=== PATIENT | male | born 1980 | race Caucasian/White ===

== ENCOUNTER 2019-03-30 16:27 | Emergency (ER) | payer OTHER ==
[2019-03-30 16:32] VITALS: BP 120/73; PULSE 108; RESP 18; TEMP 98.6
--- NOTE | 2019-03-30 17:08 | ED ---
General Adult HPI - General Chief complaint: Psychiatric Symptoms Stated complaint: Mental health Time Seen by Provider: 03/30/19 16:45 Source: patient, RN notes reviewed Mode of arrival: ambulatory Limitations: no limitations - History of Present Illness Initial comments: Patient is a pleasant 38-year-old male presenting to the emergency Department with depression. Patient from his spouse this morning. Patient was more depressed regarding this. Patient states he did have some sorts of suicidal thoughts. Patient does not feel he could act on it because he is too afraid. No homicidal thoughts. Patient did drink a little bit of Bacardi today and does not normally drink much. No street drug use. No physical complaints. - Related Data Home Medications Medication Instructions Recorded Confirmed No Known Home Medications 03/30/19 03/30/19 Allergies Allergy/AdvReac Type Severity Reaction Status Date / Time amoxicillin Allergy Unknown Verified 03/30/19 16:58 Review of Systems ROS Statement: Those systems with pertinent positive or pertinent negative responses have been documented in the HPI. ROS Other: All systems not noted in ROS Statement are negative. Constitutional: Denies: fever Eyes: Denies: eye pain ENT: Denies: ear pain Respiratory: Denies: cough Cardiovascular: Denies: chest pain Endocrine: Denies: fatigue Gastrointestinal: Denies: abdominal pain Genitourinary: Denies: dysuria Musculoskeletal: Denies: back pain Skin: Denies: rash Psychiatric: Reports: as per HPI, depression. Denies: auditory hallucinations, visual hallucinations, homicidal thoughts Past Medical History Past Medical History: No Reported History History of Any Multi-Drug Resistant Organisms: None Reported Past Surgical History: Tonsillectomy Additional Past Surgical History / Comment(s): fatty tumor removal, Past Psychological History: Anxiety, Depression Smoking Status: Current every day smoker Past Alcohol Use History: Occasional Past Drug Use History: Marijuana General Exam Limitations: no limitations General appearance: alert, in no apparent distress Head exam: Present: normocephalic Eye exam: Present: normal appearance, PERRL ENT exam: Present: normal oropharynx Neck exam: Present: normal inspection Respiratory exam: Present: normal lung sounds bilaterally Cardiovascular Exam: Present: regular rate, normal rhythm GI/Abdominal exam: Present: soft. Absent: tenderness Extremities exam: Present: normal inspection Neurological exam: Present: alert Psychiatric exam: Present: depressed Skin exam: Present: abrasion (Partially healed abrasions left forearm which patient states was from work.) Course Vital Signs 03/30/19 16:29 Temperature 98.6 F Pulse Rate 108 H Respiratory 18 Rate Blood Pressure 120/73 O2 Sat by Pulse 97 Oximetry Medical Decision Making - Medical Decision Making Patient seen by mental health services who recommends discharge and did provide follow-up information. Patient denies suicidal ideation and does contract for safety. - Lab Data Lab Results 03/30/19 Range/Units Unknown Urine Opiates Screen Not Detected (NotDetected) Ur Oxycodone Screen Not Detected (NotDetected) Urine Methadone Screen Not Detected (NotDetected) Ur Propoxyphene Screen Not Detected (NotDetected) Ur Barbiturates Screen Not Detected (NotDetected) U Tricyclic Antidepress Not Detected (NotDetected) Ur Phencyclidine Scrn Not Detected (NotDetected) Ur Amphetamines Screen Not Detected (NotDetected) U Methamphetamines Scrn Not Detected (NotDetected) U Benzodiazepines Scrn Not Detected (NotDetected) Urine Cocaine Screen Not Detected (NotDetected) U Marijuana (THC) Screen Detected H (NotDetected) Disposition Clinical Impression: Depression Disposition: HOME SELF-CARE Condition: Stable Instructions (If sedation given, give patient instructions): Depression (ED) Additional Instructions: Please follow-up with mental health services as directed. Please also follow-up to primary care physician in the next couple days for recheck. Return for thoughts of self-harm, worsening symptoms, or other concerns. Is patient prescribed a controlled substance at d/c from ED?: No Referrals: Abdiel Daugherty MD [STAFF PHYSICIAN] - 1-2 days Time of Disposition: 18:08
[2019-03-30 17:13] LABS: Amphetamine Screen,Urine Not Detected (NotDetected); Barbiturate Screen,Urine Not Detected (NotDetected); Benzodiazepines Screen,Urine Not Detected (NotDetected); Cocaine Screen,Urine Not Detected (NotDetected); Methadone Screen, Urine Not Detected (NotDetected); Opiate Screen,Urine Not Detected (NotDetected); Oxycodone Screen, Urine Not Detected (NotDetected); Phencyclidine Screen,Urine Not Detected (NotDetected); Tricyclic Antidepressant,Urine Not Detected (NotDetected); Urn Cannabinoid Scrn Detected (NotDetected)
== END 2019-03-30 18:38 | disposition home or self-care (01) ==
LOC: EC 16:27
DX: F32.9 Major depressive disorder, single episode, unspecified (principal); F17.200 Nicotine dependence, unspecified, uncomplicated; Z88.0 Allergy status to penicillin; Z63.5 Disruption of family by separation and divorce
CPT/HCPCS: 80306; 82075; 99285

== ENCOUNTER 2023-09-07 17:45 | Emergency (ER) | payer OTHER ==
[2023-09-07 17:57] VITALS: TEMP 98.1
[2023-09-07 18:37] LABS: Basophils # (A) 0.1 k/uL (0-0.2); Basophils % (A) 1 %; Eosinophils # (A) 0.9 k/uL (0-0.7); Eosinophils % (A) 12 %; HCT 43.4 % (39.0-53.0); HGB 14.4 gm/dL (13.0-17.5); Lymphocytes # (A) 2.1 k/uL (1.0-4.8); Lymphocytes % (A) 26 %; MCH 28.8 pg (25.0-35.0); MCHC 33.2 g/dL (31.0-37.0); MCV 86.6 fL (80.0-100.0); Mean Platelet Volume 6.9; Monocytes # (A) 0.5 k/uL (0-1.0); Monocytes % (A) 7 %; Neutrophils # (A) 4.3 k/uL (1.3-7.7); Neutrophils % (A) 53 %; Platelet Count 311 k/uL (150-450); RBC 5.01 m/uL (4.30-5.90); RDW 12.6 % (11.5-15.5); WBC 8.1 k/uL (3.8-10.6)
--- NOTE | 2023-09-07 18:51 | ED ---
Abdominal Pain HPI - General Source: patient, RN notes reviewed Limitations: no limitations <Marlen Danielle - Last Filed: 09/07/23 19:10> <Enmanuel Braswell - Last Filed: 09/11/23 19:58> - General Chief Complaint: Abdominal Pain Stated Complaint: abd pain Time Seen by Provider: 09/07/23 18:00 - History of Present Illness Initial Comments: 42 year old male with no significant past medical history presents to the ER with a chief plaint of left lower quadrant abdominal pain after defecation. Patient states that this has been ongoing over the past few months, but states that the pain now remains for longer periods of time. States that he will have a bowel movement and roughly an hour afterwards she will experience a pain in his left lower quadrant that persists for a few hours that radiates into his groin. Patient denies previous abdominal surgeries or history of hernias. Patient denies hematochezia, dark or tarry stools. Patient denies overt testicular pain or swelling, no hematuria or dysuria. (Marlen Danielle) - Related Data Home Medications Medication Instructions Recorded Confirmed No Known Home Medications 03/30/19 03/30/19 Allergies Allergy/AdvReac Type Severity Reaction Status Date / Time amoxicillin Allergy Unknown Verified 03/30/19 16:58 Review of Systems ROS Other: All systems not noted in ROS Statement are negative. <Marlen Danielle - Last Filed: 09/07/23 19:10> ROS Other: All systems not noted in ROS Statement are negative. <Enmanuel Braswell - Last Filed: 09/11/23 19:58> ROS Statement: Those systems with pertinent positive or pertinent negative responses have been documented in the HPI. Past Medical History Past Medical History: No Reported History History of Any Multi-Drug Resistant Organisms: None Reported Past Surgical History: Tonsillectomy Additional Past Surgical History / Comment(s): fatty tumor removal, Past Psychological History: Anxiety, Depression Past Alcohol Use History: Occasional Past Drug Use History: Marijuana <Marlen Danielle - Last Filed: 09/07/23 19:10> General Exam Limitations: no limitations General appearance: alert, in no apparent distress Head exam: Present: atraumatic, normocephalic, normal inspection Eye exam: Present: normal appearance, PERRL, EOMI. Absent: scleral icterus, conjunctival injection, periorbital swelling ENT exam: Present: normal exam, mucous membranes moist Neck exam: Present: normal inspection. Absent: tenderness, meningismus, lymphadenopathy Respiratory exam: Present: normal lung sounds bilaterally. Absent: respiratory distress, wheezes, rales, rhonchi, stridor Cardiovascular Exam: Present: regular rate, normal rhythm, normal heart sounds. Absent: systolic murmur, diastolic murmur, rubs, gallop, clicks GI/Abdominal exam: Present: soft, tenderness (mild LLQ pain to deep palpation ), normal bowel sounds. Absent: distended, guarding, rebound, rigid, mass Extremities exam: Present: normal inspection, full ROM, normal capillary refill. Absent: tenderness, pedal edema, joint swelling, calf tenderness Back exam: Present: normal inspection Neurological exam: Present: alert, oriented X3, CN II-XII intact Psychiatric exam: Present: normal affect, normal mood Skin exam: Present: warm, dry, intact, normal color. Absent: rash <Marlen Danielle - Last Filed: 09/07/23 19:10> Course Vital Signs 09/07/23 09/07/23 09/07/23 17:46 18:31 19:40 Temperature 98.1 F Pulse Rate 76 61 72 Respiratory 16 18 18 Rate Blood Pressure 112/76 108/71 110/74 O2 Sat by Pulse 98 96 100 Oximetry Medical Decision Making - Lab Data Result diagrams: 09/07/23 18:20 09/07/23 18:20 <Marlen Danielle - Last Filed: 09/07/23 19:10> - Lab Data Result diagrams: 09/07/23 18:20 09/07/23 18:20 <Enmanuel Braswell - Last Filed: 09/11/23 19:58> - Medical Decision Making Was pt. sent in by a medical professional or institution (, PA, DECORATING EQUIPMENT SETTER, urgent care, hospital, or [facility]...) When possible be specific @ -[No] Did you speak to anyone other than the patient for history (EMS, parent, family, police, friend...)? What history was obtained from this source @ -[No] Did you review nursing and triage notes (agree or disagree)? Why? @ -[I reviewed and agree with nursing and triage notes] Were old charts reviewed (outside hosp., previous admission, EMS record, old EKG, old radiological studies, urgent care reports/EKG's, [facility] records)? Report findings @ -[No old charts were reviewed] Differential Diagnosis (chest pain, altered mental status, abdominal pain women, abdominal pain men, vaginal bleeding, weakness, fever, dyspnea, syncope, headache, dizziness, GI bleed, back pain, seizure, CVA, palpatations, mental health, musculoskeletal)? @ -Differential Abdominal Pain Men: Appendicitis, cholecystitis, diverticulosis, ischemic bowel, pancreatitis, hepatitis, UTI, gastroenteritis, AAA, incarcerated hernia, bowel obstruction, constipation, inflammatory bowel, hepatitis, peptic ulcer disease, splenic infarction, perforated viscus, testicular torsion, this is not meant to be an all-inclusive list EKG interpreted by me (3pts min.). @ -None X-rays interpreted by me (1pt min.). @ -[None done] CT interpreted by me (1pt min.). @ -[None done] U/S interpreted by me (1pt. min.). @ -[None done] What testing was considered but not performed or refused? (CT, X-rays, U/S, l abs)? Why? @ -Further imaging, I.e CT and US were considered, but due to the nature of the patient's pain and how long these symptoms have been present for, did not complete imaging of the abdomen. What meds were considered but not given or refused? Why? @ -[None] Did you discuss the management of the patient with other professionals (professionals i.e. , PA, DECORATING EQUIPMENT SETTER, lab, RT, psych nurse, rn social work, molder punch, teacher, science and operations officer, telephonic nurse case manager)? Give summary @ -[No] Was smoking cessation discussed for >3mins.? @ -[No] Was critical care preformed (if so, how long)? @ -[No] Were there social determinants of health that impacted care today? How? (Homelessness, low income, unemployed, alcoholism, drug addiction, transportation, low edu. Level, literacy, decrease access to med. care, detention, rehab)? @ -[No] Was there de-escalation of care discussed even if they declined (Discuss DNR or withdrawal of care, Hospice)? DNR status @ -[No] What co-morbidities impacted this encounter? (DM, HTN, Smoking, COPD, CAD, Cancer, CVA, ARF, Chemo, Hep., AIDS, mental health diagnosis, sleep apnea, morb id obesity)? @ -[None] Was patient admitted / discharged? Hospital course, mention meds given and ro [place], prescriptions, significant lab abnormalities, going to OR and other pertinent info. @ -42-year-old male chief complaint of left lower quadrant pain after defecation. CBC and CMP unremarkable, no elevation in pancreatic enzymes. Undiagnosed new problem with uncertain prognosis? @ -[No] Drug Therapy requiring intensive monitoring for toxicity (Heparin, Nitro, Insulin, Cardizem)? @ -[No] Were any procedures done? @ -[No] Diagnosis/symptom? @ -[default] Acute, or Chronic, or Acute on Chronic? @ -[default] Uncomplicated (without systemic symptoms) or Complicated (systemic symptoms)? @ -[default] Side effects of treatment? @ -[No] Exacerbation, Progression, or Severe Exacerbation? @ -[No] Poses a threat to life or bodily function? How? (Chest pain, [place], [place], pneumonia, PE, COPD, DKA, ARF, appy, cholecystitis, CVA, Diverticulitis, Homicidal, Suicidal, threat to staff... and all critical care pts) @ -[No] (Marlen Danielle) Patient signed out to me from Marlen Danielle PA-C. In short this is a 42-year-old male presenting with chief complaint of abdominal pain after defecation ongoing for the last 2 months. Labs are grossly unremarkable. On reassessment patient shows no acute signs of distress. Abdomen is soft, nontender, nondistended. He is educated on today's findings and instructed to follow-up with GI or surgery for a colonoscopy. Discharged home. Follow-up with PCP. Report back to ER with any new or worsening symptoms. Discussed return parameters and answered all questions. Patient conveyed verbal understanding and agreed to the plan. Case discussed with attending Dr. Grady (Enmanuel Braswell) - Lab Data Lab Results 09/07/23 09/07/23 09/07/23 Range/Units 18:20 18:20 18:20 WBC 8.1 (3.8-10.6) k/uL RBC 5.01 (4.30-5.90) m/uL Hgb 14.4 (13.0-17.5) gm/dL Hct 43.4 (39.0-53.0) % MCV 86.6 (80.0-100.0) fL MCH 28.8 (25.0-35.0) pg MCHC 33.2 (31.0-37.0) g/dL RDW 12.6 (11.5-15.5) % Plt Count 311 (150-450) k/uL MPV 6.9 Neutrophils % 53 % Lymphocytes % 26 % Monocytes % 7 % Eosinophils % 12 % Basophils % 1 % Neutrophils # 4.3 (1.3-7.7) k/uL Lymphocytes # 2.1 (1.0-4.8) k/uL Monocytes # 0.5 (0-1.0) k/uL Eosinophils # 0.9 H (0-0.7) k/uL Basophils # 0.1 (0-0.2) k/uL Sodium 137 (137-145) mmol/L Potassium 4.3 (3.5-5.1) mmol/L Chloride 107 (98-107) mmol/L Carbon Dioxide 22 (22-30) mmol/L Anion Gap 8 mmol/L BUN 14 (9-20) mg/dL Creatinine 0.85 (0.66-1.25) mg/dL Est GFR (CKD-EPI)AfAm >90 (>60 ml/min/1.73 sqM) Est GFR (CKD-EPI)NonAf >90 (>60 ml/min/1.73 sqM) Glucose 87 (74-99) mg/dL Calcium 9.2 (8.4-10.2) mg/dL Total Bilirubin 0.5 (0.2-1.3) mg/dL AST 26 (17-59) U/L ALT 21 (4-49) U/L Alkaline Phosphatase 70 (38-126) U/L Total Protein 7.3 (6.3-8.2) g/dL Albumin 4.1 (3.5-5.0) g/dL Amylase 85 (30-110) U/L Lipase 237 (23-300) U/L Urine Color Light Yellow Urine Appearance Clear (Clear) Urine pH 6.5 (5.0-8.0) Ur Specific [place] 1.027 (1.001-1.035) Urine Protein Trace H (Negative) Urine Glucose (UA) Negative (Negative) Urine Ketones Negative (Negative) Urine Blood Negative (Negative) Urine Nitrite Negative (Negative) Urine Bilirubin Negative (Negative) Urine Urobilinogen <2.0 (<2.0) mg/dL Ur Leukocyte Esterase Negative (Negative) Disposition <Marlen aDnielle - Last Filed: 09/07/23 19:10> Is patient prescribed a controlled substance at d/c from ED?: No Time of Disposition: 19:26 <Enmanuel Braswell - Last Filed: 09/11/23 19:58> Clinical Impression: Abdominal pain Disposition: HOME SELF-CARE Condition: Fair Instructions (If sedation given, give patient instructions): Abdominal Pain (ED) Additional Instructions: Follow-up with PCP and GI or surgery for colonoscopy, a few options are pr ovided. Report back to ER with any new or worsening symptoms. Referrals: Michael Torres MD [Primary Care Provider] - 1-2 days Jose Roberto Brandt MD [STAFF PHYSICIAN] - 1-2 days Debbie Leach MD [STAFF PHYSICIAN] - 1-2 days Rowan Nina MD [STAFF PHYSICIAN] - 1-2 days
[2023-09-07 19:01] VITALS: RESP 18
[2023-09-07 19:02] LABS: ALT 21 U/L (4-49); AST 26 U/L (17-59); African American GFR (CKD) >90 (>60 ml/min/1.73 sqM); Albumin 4.1 g/dL (3.5-5.0); Alkaline Phosphatase 70 U/L (38-126); Amylase 85 U/L (30-110); Anion Gap 8 mmol/L; Blood Urea Nitrogen 14 mg/dL (9-20); Calcium 9.2 mg/dL (8.4-10.2); Carbon Dioxide 22 mmol/L (22-30); Chloride 107 mmol/L (98-107); Glucose 87 mg/dL (74-99); Lipase 237 U/L (23-300); Non-African American GFR(CKD) >90 (>60 ml/min/1.73 sqM); Potassium 4.3 mmol/L (3.5-5.1); Sodium 137 mmol/L (137-145); Total Bilirubin 0.5 mg/dL (0.2-1.3); Total Protein 7.3 g/dL (6.3-8.2)
[2023-09-07 19:17] LABS: Appearance,Urine Clear (Clear); Bilirubin,Urine Negative (Negative); Blood,Urine Negative (Negative); Color,Urine Light Yellow; Glucose,Urine (UA) Negative (Negative); Ketones,Urine Negative (Negative); Leukocyte Esterase,Urine Negative (Negative); Nitrite,Urine Negative (Negative); PH, Urine 6.5 (5.0-8.0); Protein,Urine Trace (Negative); Specific Gravity,Urine 1.027 (1.001-1.035); Urobilinogen,Urine <2.0 mg/dL (<2.0)
[2023-09-07 20:04] VITALS: BP 110/74; PULSE 72
== END 2023-09-07 19:50 | disposition home or self-care (01) ==
LOC: EC 17:45
DX: R10.32 Left lower quadrant pain (principal); F12.90 Cannabis use, unspecified, uncomplicated; Z88.0 Allergy status to penicillin
CPT/HCPCS: 36415; 80053; 81003; 82150; 83690; 85025; 99284

== ENCOUNTER 2024-08-31 10:22 | Inpatient (IN) | payer OTHER ==
--- NOTE | 2024-08-31 11:41 | ED ---
Abdominal Pain HPI - General Chief Complaint: Abdominal Pain Stated Complaint: abd pain Time Seen by Provider: 08/31/24 11:40 Source: patient Mode of arrival: ambulatory Limitations: no limitations - History of Present Illness Initial Comments: 43-year-old male presenting chief complaint of abdominal pain. Patient states "he feels like there is a ball involving middle of my stomach". He did have some vomiting and diarrhea a few days ago which has since subsided. No history of abdominal surgeries. No chest pain or difficulty breathing. No urinary symptoms. No known fever. Pain does radiate to the back. Feels like a pressure sensation accompanied by burning. - Related Data Home Medications Medication Instructions Recorded Confirmed FLUoxetine HCL 40 mg PO DAILY 08/31/24 08/31/24 Allergies Allergy/AdvReac Type Severity Reaction Status Date / Time amoxicillin Allergy Unknown Verified 08/31/24 14:25 Review of Systems ROS Statement: Those systems with pertinent positive or pertinent negative responses have been documented in the HPI. ROS Other: All systems not noted in ROS Statement are negative. Past Medical History Past Medical History: No Reported History, GERD/Reflux History of Any Multi-Drug Resistant Organisms: None Reported Past Surgical History: Tonsillectomy Additional Past Surgical History / Comment(s): fatty tumor removal, Past Psychological History: Anxiety, Depression Past Alcohol Use History: Occasional Past Drug Use History: Marijuana General Exam - General Exam Comments Initial Comments: Visual Physical Exam Vital signs reviewed General: Well-appearing, nontoxic, no acute distress. Head: Normocephalic, atraumatic Eyes: PERRLA, EOMI ENT: Airway patent Chest: Nonlabored breathing Skin: No visual rash, normal skin tone Neuro: Alert and oriented 3 Musculoskeletal: No gross abnormalities Limitations: no limitations General appearance: alert, in no apparent distress Head exam: Present: atraumatic, normocephalic, normal inspection Eye exam: Present: normal appearance, EOMI Neck exam: Present: normal inspection. Absent: meningismus Respiratory exam: Present: normal lung sounds bilaterally. Absent: respiratory distress, wheezes, rales, rhonchi, stridor Cardiovascular Exam: Present: regular rate, normal rhythm, normal heart sounds. Absent: systolic murmur, diastolic murmur, rubs, gallop, clicks GI/Abdominal exam: Present: soft, tenderness. Absent: distended, guarding, rebound, rigid Neurological exam: Present: alert, oriented X3 Psychiatric exam: Present: normal affect, normal mood Skin exam: Present: warm, dry, normal color Course Vital Signs 08/31/24 08/31/24 08/31/24 10:39 13:50 18:36 Temperature 97.9 F 97.7 F Pulse Rate 72 56 L 69 Respiratory 20 20 20 Rate Blood Pressure 131/80 129/78 119/77 O2 Sat by Pulse 99 100 99 Oximetry 08/31/24 21:31 Temperature 99 F Pulse Rate 72 Respiratory 18 Rate Blood Pressure 121/67 O2 Sat by Pulse 99 Oximetry Medical Decision Making - Medical Decision Making I performed the quick note portion of this visit, electronically signed Enmanuel Braswell PA-C Was pt. sent in by a medical professional or institution ([facility], SLEEPING ROOM CLEANER, urgent care, hospital, or group home...) When possible be specific @ -No Did you speak to anyone other than the patient for history (EMS, parent, family, police, friend...)? What history was obtained from this source @ -No Did you review nursing and triage notes (agree or disagree)? Why? @ -I reviewed and agree with nursing and triage notes Were old charts reviewed (outside hosp., previous admission, EMS record, old EKG, old radiological studies, urgent care reports/EKG's, group home records)? Report findings @ -No old charts were reviewed Differential Diagnosis (chest pain, altered mental status, abdominal pain women, abdominal pain men, vaginal bleeding, weakness, fever, dyspnea, syncope, headache, dizziness, GI bleed, back pain, seizure, CVA, palpatations, mental health, musculoskeletal)? @ -MDM Differential Abdominal Pain Men: Appendicitis, cholecystitis, diverticulosis, ischemic bowel, pancreatitis, hepatitis, UTI, gastroenteritis, AAA, incarcerated hernia, bowel obstruction, constipation, inflammatory bowel, hepatitis, peptic ulcer disease, splenic infarction, perforated viscus, testicular torsion... This is not meant to be an all-inclusive list EKG interpreted by me (3pts min.). @ -As above X-rays interpreted by me (1pt min.). @ -None done CT interpreted by me (1pt min.). @ -CT shows findings concerning for acute cholecystitis with mildly distended gallbladder with wall thickening and pericholecystic fluid with stranding and a large gallstone in the gallbladder neck. Correlate clinically. This can be further evaluated with ultrasound as clinically indicated U/S interpreted by me (1pt. min.). @ -None done What testing was considered but not performed or refused? (CT, X-rays, U/S, labs)? Why? @ -None What meds were considered but not given or refused? Why? @ -None Did you discuss the management of the patient with other professionals (professionals i.e. DrNichole, PA, SLEEPING ROOM CLEANER, lab, RT, psych nurse, social media coordinator, runner on, teacher, payroll officer, bottle caser)? Give summary @ -Spoke with Dr. Jay who accepts admission Was smoking cessation discussed for >3mins.? @ -No Was critical care preformed (if so, how long)? @ -No Were there social determinants of health that impacted care today? How? (Homelessness, low income, unemployed, alcoholism, drug addiction, transportation, low edu. Level, literacy, decrease access to med. care, retirement, rehab)? @ -No Was there de-escalation of care discussed even if they declined (Discuss DNR or withdrawal of care, Hospice)? DNR status @ -No What co-morbidities impacted this encounter? (DM, HTN, Smoking, COPD, CAD, Cancer, CVA, ARF, Chemo, Hep., AIDS, mental health diagnosis, sleep apnea, morbid obesity)? @ -None Was patient admitted / discharged? Hospital course, mention meds given and route, prescriptions, significant lab abnormalities, going to OR and other pertinent info. @ -43-year-old male presenting with chief complaint of epigastric pain for 4 days. Workup is initiated by triage. Patient is later placed in a hallway bed and evaluated by myself. No leukocytosis or anemia. Sodium 135 patient is receiving IV fluids. Remainder of CMP amylase and lipase are WNL. Urine shows no infectious process or bleeding. CT shows evidence of acute cholecystitis. This corresponds with the patient's pain. Patient is started on ceftriaxone and metronidazole. He is educated on today's findings. He will be admitted for evaluation by surgery. Follow-up with PCP. Report back to ER with any new or worsening symptoms. Discussed return parameters and answered all questions. Patient conveyed verbal understanding and agreed to the plan. I discussed this case in detail with my attending Dr. Howard Undiagnosed new problem with uncertain prognosis? @ -No Drug Therapy requiring intensive monitoring for toxicity (Heparin, Nitro, Insulin, Cardizem)? @ -No Were any procedures done? @ -No Diagnosis/symptom? @ -Acute cholecystitis Acute, or Chronic, or Acute on Chronic? @ -Acute Uncomplicated (without systemic symptoms) or Complicated (systemic symptoms)? @ -Complicated Side effects of treatment? @ -No Exacerbation, Progression, or Severe Exacerbation? @ -No Poses a threat to life or bodily function? How? (Chest pain, [place], [place], pneumonia, PE, COPD, DKA, ARF, appy, cholecystitis, CVA, Diverticulitis, Homicidal, Suicidal, threat to staff... and all critical care pts) @ -Yes - Lab Data Result diagrams: 08/31/24 13:13 08/31/24 13:13 Lab Results 08/31/24 08/31/24 08/31/24 Range/Units 13:13 13:13 13:13 WBC 9.9 (3.8-10.6) k/uL RBC 4.95 (4.30-5.90) m/uL Hgb 13.5 (13.0-17.5) gm/dL Hct 41.7 (39.0-53.0) % MCV 84.2 (80.0-100.0) fL MCH 27.2 (25.0-35.0) pg MCHC 32.3 (31.0-37.0) g/dL RDW 12.8 (11.5-15.5) % Plt Count 348 (150-450) k/uL MPV 7.2 Neutrophils % 64 % Lymphocytes % 23 % Monocytes % 7 % Eosinophils % 4 % Basophils % 0 % Neutrophils # 6.3 (1.3-7.7) k/uL Lymphocytes # 2.3 (1.0-4.8) k/uL Monocytes # 0.7 (0-1.0) k/uL Eosinophils # 0.4 (0-0.7) k/uL Basophils # 0.0 (0-0.2) k/uL Sodium 135 L (137-145) mmol/L Potassium 3.8 (3.5-5.1) mmol/L Chloride 100 (98-107) mmol/L Carbon Dioxide 26 (22-30) mmol/L Anion Gap 9 mmol/L BUN 9 (9-20) mg/dL Creatinine 0.74 (0.66-1.25) mg/dL Est GFR (CKD-EPI)AfAm >90 (>60 ml/min/1.73 sqM) Est GFR (CKD-EPI)NonAf >90 (>60 ml/min/1.73 sqM) Glucose 90 (74-99) mg/dL Plasma Lactic Acid Shawn 0.8 (0.7-2.0) mmol/L Calcium 9.1 (8.4-10.2) mg/dL Total Bilirubin 0.8 (0.2-1.3) mg/dL AST 22 (17-59) U/L ALT 17 (4-49) U/L Alkaline Phosphatase 66 (38-126) U/L Total Protein 7.1 (6.3-8.2) g/dL Albumin 4.0 (3.5-5.0) g/dL Amylase 57 (30-110) U/L Lipase 133 (23-300) U/L Disposition Clinical Impression: Acute cholecystitis Disposition: ADMITTED IP TO THIS HOSP Condition: Fair Time of Disposition: 13:42
--- NOTE | 2024-08-31 12:15 | CT ---
EXAMINATION TYPE: CT abdomen pelvis w con CT DLP: 746 mGycm, Automated exposure control for dose reduction was used. DATE OF EXAM: 08/31/2024 12:08 PM COMPARISON: None CLINICAL INDICATION:Male, 43 years old with history of abdominal pain; Umbilical pain radiating aroun d the back TECHNIQUE: Standard CT of the abdomen and pelvis following the administration of 100 cc of Isovue 3 00 IV contrast material. Coronal and sagittal reformats were performed. FINDINGS: LOWER CHEST: Unremarkable ABDOMEN LIVER: Subcentimeter hypodense focus within the right hepatic dome which is too small to categorize b ut likely represents a cyst. GALLBLADDER AND BILE DUCTS: Mildly distended gallbladder with surrounding wall thickening and pericho lecystic fluid. Large 2.4 cm gallstone in the neck of the gallbladder. No biliary duct dilatation. PANCREAS: Unremarkable. SPLEEN: Unremarkable. ADRENAL GLANDS: Unremarkable. KIDNEYS AND URETERS: No evidence of hydronephrosis or renal calculus. The kidneys enhance symmetrical ly. Left renal upper pole cortical 1.2 cm cyst. Additional subcentimeter cyst within the left mid kid lisa. Contrast is demonstrated within both collecting systems on the delayed phase. PELVIS BLADDER: Incompletely distended but grossly unremarkable. REPRODUCTIVE: Unremarkable. ABDOMEN & PELVIS STOMACH AND BOWEL: Stomach and duodenum are unremarkable. No focal bowel wall thickening or surroundi ng inflammatory changes. The appendix is within normal limits. No evidence of bowel obstruction. PERITONEUM: No evidence of pneumoperitoneum or free fluid. VASCULATURE: No evidence of aortic aneurysm. Few pelvic phleboliths. MUSCULOSKELETAL: No acute osseous abnormalities LYMPH NODES: No evidence for lymphadenopathy. SOFT TISSUE/ABDOMINAL WALL: Unremarkable IMPRESSION: Findings concerning for acute cholecystitis with mildly distended gallbladder with wall thickening an d pericholecystic fluid with stranding and a large gallstone in the gallbladder neck. Correlate clini flory. This can be further evaluated with ultrasound as clinically indicated. [facility], , 08/31/2024 12:13 PM
[2024-08-31] MEDS: SODIUM CHLORIDE 0.9% 1,000 ML IV ONE (13:16)
[2024-08-31] MEDS: MORPHINE SULFATE 4 MG/ML SYRINGE IVP STA (13:16)
[2024-08-31 13:18] LABS: Basophils % (A) 0 %; Eosinophils # (A) 0.4 k/uL (0-0.7); Eosinophils % (A) 4 %; HCT 41.7 % (39.0-53.0); HGB 13.5 gm/dL (13.0-17.5); Lymphocytes # (A) 2.3 k/uL (1.0-4.8); Lymphocytes % (A) 23 %; MCH 27.2 pg (25.0-35.0); MCHC 32.3 g/dL (31.0-37.0); MCV 84.2 fL (80.0-100.0); Mean Platelet Volume 7.2; Monocytes # (A) 0.7 k/uL (0-1.0); Monocytes % (A) 7 %; Neutrophils # (A) 6.3 k/uL (1.3-7.7); Neutrophils % (A) 64 %; Platelet Count 348 k/uL (150-450); RBC 4.95 m/uL (4.30-5.90); RDW 12.8 % (11.5-15.5); WBC 9.9 k/uL (3.8-10.6)
[2024-08-31 13:29] LABS: ALT 17 U/L (4-49); AST 22 U/L (17-59); African American GFR (CKD) >90 (>60 ml/min/1.73 sqM); Alkaline Phosphatase 66 U/L (38-126); Amylase 57 U/L (30-110); Anion Gap 9 mmol/L; Blood Urea Nitrogen 9 mg/dL (9-20); Calcium 9.1 mg/dL (8.4-10.2); Carbon Dioxide 26 mmol/L (22-30); Chloride 100 mmol/L (98-107); Glucose 90 mg/dL (74-99); Lipase 133 U/L (23-300); Non-African American GFR(CKD) >90 (>60 ml/min/1.73 sqM); Potassium 3.8 mmol/L (3.5-5.1); Sodium 135 mmol/L (137-145); Total Bilirubin 0.8 mg/dL (0.2-1.3); Total Protein 7.1 g/dL (6.3-8.2)
[2024-08-31] MEDS ORDERED: NALOXONE 0.4 MG/ML 1 ML VIAL IV PRN (13:40)
[2024-08-31 14:04] LABS: Appearance,Urine Clear (Clear); Bilirubin,Urine Negative (Negative); Blood,Urine Negative (Negative); Color,Urine Colorless; Glucose,Urine (UA) Negative (Negative); Ketones,Urine 1+ (Negative); Leukocyte Esterase,Urine Negative (Negative); Nitrite,Urine Negative (Negative); Protein,Urine Negative (Negative); Urobilinogen,Urine <2.0 mg/dL (<2.0)
[2024-08-31] MEDS: SODIUM CHLORIDE 0.9% 1,000 ML IV SCH (14:49)
--- NOTE | 2024-08-31 14:49 | US ---
EXAMINATION TYPE: US abdomen limited DATE OF EXAM: 08/31/2024 COMPARISON: NONE CLINICAL INDICATION: Male, 43 years old with history of Acute Cholecystitis; cholecystitis. epigastri c pain, nausea/vomiting TECHNIQUE: Grayscale and color Doppler imaging of the right upper quadrant was performed. FINDINGS: EXAM MEASUREMENTS: Liver Length: 14.8 cm Gallbladder Wall: 0.5 cm CBD: 0.4 cm Right Kidney: 12.1 x 5.1 x 4.9 cm Pancreas: Obscured by bowel gas Liver: appears wnl Gallbladder: stone = 1.8cm. sludge. thickened GB wall Evidence for sonographic Piña's sign: no, patient on morphine CBD: appears wnl Right Kidney: no evidence of hydronephrosis IMPRESSION: Gallbladder wall thickening with sludge material noted. No pericholecystic fluid or CBD dilatation. [facility], , 08/31/2024 2:47 PM
[2024-08-31] MEDS: metroNIDAZOLE-NS PMX 500 MG in SALINE 1 100ML.BAG IVPB STA (14:51)
[2024-08-31] MEDS: metroNIDAZOLE-NS PMX 500 MG in SALINE 1 100ML.BAG IVPB SCH (15:23)
[2024-08-31] MEDS: MORPHINE SULFATE 4 MG/ML SYRINGE IV PRN (18:38)
[2024-08-31] MEDS: KETOROLAC 15 MG/ML 1 ML VIAL IVP PRN (20:24)
[2024-08-31] MEDS: ONDANSETRON 4 MG/2 ML VIAL IVP PRN (23:29)
[2024-09-01] MEDS: FLUoxetine HCL 20 MG CAP PO SCH (07:48)
[2024-09-01 07:54] LABS: Basophils % (A) 0 %; Eosinophils # (A) 0.3 k/uL (0-0.7); Eosinophils % (A) 5 %; HCT 37.4 % (39.0-53.0); HGB 12.6 gm/dL (13.0-17.5); Lymphocytes # (A) 2.1 k/uL (1.0-4.8); Lymphocytes % (A) 29 %; MCHC 33.8 g/dL (31.0-37.0); MCV 85.8 fL (80.0-100.0); Mean Platelet Volume 7.3; Monocytes # (A) 0.6 k/uL (0-1.0); Monocytes % (A) 8 %; Neutrophils # (A) 4.2 k/uL (1.3-7.7); Neutrophils % (A) 56 %; Platelet Count 295 k/uL (150-450); RBC 4.36 m/uL (4.30-5.90); RDW 13.1 % (11.5-15.5); WBC 7.4 k/uL (3.8-10.6)
[2024-09-01 08:07] LABS: ALT 14 U/L (4-49); AST 20 U/L (17-59); African American GFR (CKD) >90 (>60 ml/min/1.73 sqM); Albumin 3.5 g/dL (3.5-5.0); Albumin/Globulin Ratio 1.3; Alkaline Phosphatase 57 U/L (38-126); Anion Gap 6 mmol/L; Bilirubin,Unconjugated 0.4 mg/dL (0.0-1.1); Blood Urea Nitrogen 2 mg/dL (9-20); Calcium 8.5 mg/dL (8.4-10.2); Carbon Dioxide 26 mmol/L (22-30); Chloride 104 mmol/L (98-107); Globulin 2.7 g/dL; Glucose 87 mg/dL (74-99); Non-African American GFR(CKD) >90 (>60 ml/min/1.73 sqM); Sodium 136 mmol/L (137-145); Total Bilirubin 0.6 mg/dL (0.2-1.3); Total Protein 6.2 g/dL (6.3-8.2)
--- NOTE | 2024-09-01 09:18 | P.GSHP ---
History of Present Illness H&P Date: 09/01/24 43-year-old male presenting chief complaint of abdominal pain. Patient states "he feels like there is a ball involving middle of my stomach". He did have some vomiting and diarrhea a few days ago which has since subsided. No history of abdominal surgeries. No chest pain or difficulty breathing. No urinary symptoms. No known fever. Pain does radiate to the back. Feels like a pressu re sensation accompanied by burning. Review of Systems ROS Statement: Those systems with pertinent positive or pertinent negative responses have been documented in the HPI. ROS Other: All systems not noted in ROS Statement are negative. Past Medical History Past Medical History: No Reported History, GERD/Reflux History of Any Multi-Drug Resistant Organisms: None Reported Past Surgical History: Tonsillectomy Additional Past Surgical History / Comment(s): fatty tumor removal, Past Psychological History: Anxiety, Depression Past Alcohol Use History: Occasional Past Drug Use History: Marijuana General Exam Limitations: no limitations General appearance: alert, in no apparent distress Head exam: Present: atraumatic, normocephalic, normal inspection Eye exam: Present: normal appearance, EOMI Neck exam: Present: normal inspection. Absent: meningismus Respiratory exam: Present: normal lung sounds bilaterally. Absent: respiratory distress, wheezes, rales, rhonchi, stridor Cardiovascular Exam: Present: regular rate, normal rhythm, normal heart sounds. Absent: systolic murmur, diastolic murmur, rubs, gallop, clicks GI/Abdominal exam: Present: soft, tenderness. Absent: distended, guarding, rebound, rigid Neurological exam: Present: alert, oriented X3 Psychiatric exam: Present: normal affect, normal mood Skin exam: Present: warm, dry, normal color 43 year old male with epigastric pain. CT-AP concerning for cholecystitis. US shows some GB wall thickening with sludge but no PCC fluid or stones -CT-AP and US reviewed -CLD, NPO/midnight -EGD tomorrow to rule out PUD -HIDA scan ordered -Rocephin/Flagyl -Pain and Nausea Control Mauro [facility] [phone] Past Medical History Past Medical History: GERD/Reflux History of Any Multi-Drug Resistant Organisms: None Reported Past Surgical History: Tonsillectomy Additional Past Surgical History / Comment(s): fatty tumor removal Past Anesthesia/Blood Transfusion Reactions: No Reported Reaction Past Psychological History: Anxiety, Depression Smoking Status: Former smoker Past Alcohol Use History: Occasional Past Drug Use History: Marijuana Medications and Allergies Home Medications Medication Instructions Recorded Confirmed Type FLUoxetine HCL 40 mg PO DAILY 08/31/24 08/31/24 History Allergies Allergy/AdvReac Type Severity Reaction Status Date / Time amoxicillin Allergy Unknown Verified 08/31/24 14:25 Surgical - Exam Vital Signs Temp Pulse Resp BP Pulse Ox 97.9 F 72 20 131/80 99 08/31/24 10:39 08/31/24 10:39 08/31/24 10:39 08/31/24 10:39 08/31/24 10:39 Results - Labs 09/01/24 07:05 09/01/24 07:05 Abnormal Lab Results - Last 24 Hours (Table) 08/31/24 08/31/24 09/01/24 Range/Units 13:13 13:58 07:05 Hgb 12.6 L (13.0-17.5) gm/dL Hct 37.4 L (39.0-53.0) % Sodium 135 L (137-145) mmol/L BUN (9-20) mg/dL Total Protein (6.3-8.2) g/dL Ur Specific [place] 1.050 H (1.001-1.035) Urine Ketones 1+ H (Negative) 09/01/24 Range/Units 07:05 Hgb (13.0-17.5) gm/dL Hct (39.0-53.0) % Sodium 136 L (137-145) mmol/L BUN 2 L (9-20) mg/dL Total Protein 6.2 L (6.3-8.2) g/dL Ur Specific [place] (1.001-1.035) Urine Ketones (Negative) Diabetes panel 08/31/24 09/01/24 Range/Units 13:13 07:05 Sodium 135 L 136 L (137-145) mmol/L Potassium 3.8 4.0 (3.5-5.1) mmol/L Chloride 100 104 (98-107) mmol/L Carbon Dioxide 26 26 (22-30) mmol/L BUN 9 2 L (9-20) mg/dL Creatinine 0.74 0.67 (0.66-1.25) mg/dL Glucose 90 87 (74-99) mg/dL Calcium 9.1 8.5 (8.4-10.2) mg/dL AST 22 20 (17-59) U/L ALT 17 14 (4-49) U/L Alkaline Phosphatase 66 57 (38-126) U/L Total Protein 7.1 6.2 L (6.3-8.2) g/dL Albumin 4.0 3.5 (3.5-5.0) g/dL Calcium panel 08/31/24 09/01/24 Range/Units 13:13 07:05 Calcium 9.1 8.5 (8.4-10.2) mg/dL Albumin 4.0 3.5 (3.5-5.0) g/dL Pituitary panel 08/31/24 09/01/24 Range/Units 13:13 07:05 Sodium 135 L 136 L (137-145) mmol/L Potassium 3.8 4.0 (3.5-5.1) mmol/L Chloride 100 104 (98-107) mmol/L Carbon Dioxide 26 26 (22-30) mmol/L BUN 9 2 L (9-20) mg/dL Creatinine 0.74 0.67 (0.66-1.25) mg/dL Glucose 90 87 (74-99) mg/dL Calcium 9.1 8.5 (8.4-10.2) mg/dL Adrenal panel 08/31/24 09/01/24 Range/Units 13:13 07:05 Sodium 135 L 136 L (137-145) mmol/L Potassium 3.8 4.0 (3.5-5.1) mmol/L Chloride 100 104 (98-107) mmol/L Carbon Dioxide 26 26 (22-30) mmol/L BUN 9 2 L (9-20) mg/dL Creatinine 0.74 0.67 (0.66-1.25) mg/dL Glucose 90 87 (74-99) mg/dL Calcium 9.1 8.5 (8.4-10.2) mg/dL Total Bilirubin 0.8 0.6 (0.2-1.3) mg/dL AST 22 20 (17-59) U/L ALT 17 14 (4-49) U/L Alkaline Phosphatase 66 57 (38-126) U/L Total Protein 7.1 6.2 L (6.3-8.2) g/dL Albumin 4.0 3.5 (3.5-5.0) g/dL
--- NOTE | 2024-09-01 20:47 | HP ---
HISTORY AND PHYSICAL CHIEF COMPLAINT: Abdominal pain. HISTORY OF PRESENT ILLNESS: This 43-year-old gentleman came to the emergency room with epigastric pain and a feeling of bloating. Studies in the emergency room suggested that he has a thickened wall to the gallbladder. Pancreatic enzymes are normal. He was admitted with a diagnosis of cholecystitis. REVIEW OF SYSTEMS: He has had no fever, chills, hematemesis, jaundice, acholic stools, dark urine, etc. PAST MEDICAL HISTORY: Otherwise, unremarkable and noncontributory. FAMILY HISTORY: Otherwise, unremarkable and noncontributory. PERSONAL AND SOCIAL HISTORY: Otherwise, unremarkable and noncontributory. PHYSICAL EXAMINATION: VITAL SIGNS: Normal. He is afebrile. HEAD, EARS, EYES, NOSE, MOUTH AND THROAT: Normal. CHEST: Clear. CARDIAC EXAM: Normal. ABDOMEN: Soft and nontender except over the epigastrium. There are no definite masses or visceromegaly. Bowel sounds are present. EXTREMITIES: Normal. NEUROLOGIC: He is intact. DIAGNOSES: He is admitted to the hospital with diagnosis of cholecystitis. PLAN: 1. Bed rest. 2. IV fluids. 3. General Surgery consult. MMODL / IJN: [id number] /
--- NOTE | 2024-09-01 21:53 | PN ---
PROGRESS NOTE CHIEF COMPLAINT: Abdominal pain. HISTORY OF PRESENT ILLNESS: This gentleman is still having quite a bit of abdominal pain intermittently. Apparently, Surgery thinks this might be an ulcer. 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 CHEST: Clear. CARDIAC: Normal. IMPRESSION: Epigastric pain. PLAN: Await further studies tomorrow. MMODL / IJN: [id number] /
[2024-09-02 09:18] LABS: Basophils # (A) 0.04 X 10*3/uL (0.00-0.10); Basophils % (A) 0.6 %; Eosinophils # (A) 0.35 X 10*3/uL (0.04-0.35); Eosinophils % (A) 5.2 %; HCT 35.7 % (39.6-50.0); HGB 11.9 g/dL (13.0-17.0); Lymphocytes # (A) 2.12 X 10*3/uL (0.90-5.00); Lymphocytes % (A) 31.5 %; MCH 28.2 pg (27.0-32.0); MCHC 33.3 g/dL (32.0-37.0); MCV 84.6 FL (80.0-97.0); Monocytes # (A) 0.68 X 10*3/uL (0.20-1.00); Monocytes % (A) 10.1 %; NRBC Per 100 WBC 0 X 10*3/uL (0.00-0.01); Neutrophils # (A) 3.51 X 10*3/uL (1.80-7.70); Neutrophils % (A) 52.2 %; Platelet Count 313 X 10*3/uL (140-440); RBC 4.22 X 10*6/uL (4.40-5.60); RDW 12.9 % (11.5-14.5); WBC 6.73 X 10*3/uL (4.50-10.00)
[2024-09-02 09:23] LABS: BUN/Creat Ratio <5.00 Ratio (12.00-20.00); Blood Urea Nitrogen <3.5 mg/dL (9.0-27.0); Carbon Dioxide 24.1 mmol/L (21.6-31.8); Chloride 110 mmol/L (96-109); Glucose 90 mg/dL (70-110); Potassium 3.9 mmol/L (3.5-5.5); Sodium 141 mmol/L (135-145)
[2024-09-02 09:24] LABS: ALT 12 U/L (10-49); AST 16 U/L (14-35); Albumin 3.5 g/dL (3.8-4.9); Albumin/Globulin Ratio 1.59 Ratio (1.60-3.17); Alkaline Phosphatase 60 U/L (41-126); Bilirubin, Conjugated <0.20 mg/dL (0.20-0.40); Bilirubin,Unconjugated >0.10 mg/dL (0.20-1.00); Calcium 8.4 mg/dL (8.7-10.3); Globulin 2.2 g/dL (1.6-3.3); Total Bilirubin 0.3 mg/dL (0.3-1.2); Total Protein 5.7 g/dL (6.2-8.2)
[2024-09-02] MEDS ORDERED: PROPOFOL 10 MG/ML 20 ML VIAL IV ONE (10:38)
[2024-09-02] MEDS ORDERED: LIDOCAINE 1% INJ 10MG/ML (20 ML MDV) ONE (10:38)
[2024-09-02] MEDS: IV FLUID CONTINUATION 1,000 ML IV ONE (10:48)
--- NOTE | 2024-09-02 11:03 | P.PCN ---
Date of Procedure: 09/02/24 Preoperative Diagnosis: Epigastric pain Postoperative Diagnosis: Epigastric pain Duodenitis Hiatal hernia Procedure(s) Performed: EGD with biopsies Anesthesia: MAC Surgeon: Julito Varghese Pathology: other (Biopsies of duodenum, antrum, GE junction) Condition: stable Disposition: same day Indications for Procedure: 43-year-old male presented to the emergency department with severe epigastric pain. Workup constitutes both biliary and gastric workup. Plan is for EGD currently. Risks, benefits and alternatives were provided to the patient. Operative Findings: Duodenitis Hiatal hernia Description of Procedure: The patient was brought into the endoscopy suite and placed in left lateral decubitus position. Adequate sedation was achieved using conscious sedation. A bite-block was placed and an endoscope was placed in the oropharynx and advanced under endoscopic visualization. The endoscope was advanced through the esophagus into the stomach, through the gastric antrum and in through the pylorus. The third portion of duodenum was visualized. The endoscope was then slowly withdrawn. The first portion of duodenum was noted to have some white patches and inflammatory changes. Biopsies were taken. The antrum was noted to have mild inflammatory changes. Biopsies were taken. The gastric body distended normally and the gastric folds appeared normal and flattened with insufflation. A retroflexed view of the fundus and GE junction revealed mild hiatal hernia. GE junction appeared normal and biopsies were taken. The esophagus appeared endoscopically normal. Excess air was removed and the scope was withdrawn and the procedure was completed. The patient was sent to PACU in stable condition.
--- NOTE | 2024-09-02 12:28 | NM ---
EXAMINATION TYPE: NM hepatobiliary w/o CCK DATE OF EXAM: 09/02/2024 12:15 PM COMPARISON: CT 08/03/2024 CLINICAL INDICATION:Male, 43 years old with history of Cholecystitis; TECHNIQUE: The patient was given 5.2 mCi of Technetium 99m-Mebrofenin delayed imaging is performed u p to 4 hours with nonvisualization the gallbladder. Exam was terminated at that time. FINDINGS: Normal uptake of radiotracer was identified within the liver with excretion into the hepatic and comm on biliary ducts within 15 min. There was normal progressive washout of the liver over the course of the study. Radiotracer uptake within the small bowel activity was identified at 15 minutes. Nonvisualization of the gallbladder at 4 hours post injection compatible with cystic duct obstruction .. IMPRESSION: Nonvisualization the gallbladder correlate for cystic duct obstruction/cholecystitis. Surgical consul tation recommended. [facility], , 09/02/2024 12:25 PM
--- NOTE | 2024-09-02 14:44 | P.PN ---
Subjective Progress Note Date: 09/02/24 SURGICAL PROGRESS NOTE CHIEF COMPLAINT: Abdominal pain HISTORY OF PRESENT ILLNESS: Patient status post EGD today with results reporting duodenitis hiatal hernia. The duodenum had white patches and inflammatory changes. Biopsies were completed. Patient had HIDA scan completed and gallbladder was not visualized correlate for cystic duct obstruction/cholecystitis. Afebrile. WBC 6.73 LFTs normal. Patient complaining of cough and congestion in his lungs. PHYSICAL EXAM: VITAL SIGNS: Reviewed. GENERAL: Well-developed in no acute distress. ABDOMEN: Soft. Nondistended. NEUROLOGIC: Alert and oriented. Cranial nerves II through XII grossly intact. ASSESSMENT: 1. Epigastric abdominal pain 2. Acute cholecystitis. Positive HIDA scan. Ultrasound shows gallbladder wall thickening and sludge PLAN: -Patient scheduled for robotic cholecystectomy tomorrow with Dr. Varghese -N.p.o. after midnight -Follow-up on biopsy results from EGD -Continue antibiotics -Check chest x-ray for cough and congestion -Continue pain management -Okay for clear liquid diet today Physician Hydraulic Press Tender note has been reviewed by physician. Signing provider agrees with the documented findings, assessment, and plan of care. Attestation Patient did have EGD performed today. Plan is for evaluation of HIDA scan with finding of nonvisualized gallbladder with cystic duct obstruction. Plan is for robotic cholecystectomy. This will be performed on 09/03/2024. This was discussed with patient and he is agreeable with this plan. N.p.o. after midnight for surgical procedure. Julito Varghese DO Objective - Vital Signs Vital signs: Vital Signs Temp 98.5 F 09/02/24 08:00 Pulse 73 09/02/24 08:00 Resp 18 09/02/24 08:00 BP 119/71 09/02/24 08:00 Pulse Ox 98 09/02/24 08:00 FiO2 Intake & Output 09/01/24 09/02/24 09/02/24 18:59 06:59 18:59 Intake Total 250 200 Balance 250 200 Intake: IV 200 Oral 250 Other: Voiding Method Toilet Toilet # Voids 2 1 - Labs CBC & Chem 7: 09/03/24 03:05 09/03/24 03:05 Labs: Abnormal Lab Results - Last 24 Hours (Table) 03/17/25 03/17/25 Range/Units 02:36 02:36 RBC 4.22 L (4.40-5.60) X 10*6/uL Hgb 11.9 L (13.0-17.0) g/dL Hct 35.7 L (39.6-50.0) % Chloride 110 H (96-109) mmol/L BUN <3.5 L (9.0-27.0) mg/dL BUN/Creatinine Ratio <5.00 L (12.00-20.00) Ratio Calcium 8.4 L (8.7-10.3) mg/dL Unconjugated Bilirubin >0.10 L (0.20-1.00) mg/dL Total Protein 5.7 L (6.2-8.2) g/dL Albumin 3.5 L (3.8-4.9) g/dL Albumin/Globulin Ratio 1.59 L (1.60-3.17) Ratio
--- NOTE | 2024-09-02 16:04 | XR ---
EXAMINATION TYPE: XR chest 2V DATE OF EXAM: 09/02/2024 3:58 PM COMPARISON: None. CLINICAL INDICATION: Male, 43 years old with history of cough, TECHNIQUE: Frontal and lateral views of the chest are obtained. FINDINGS: There is no focal air space opacity, pleural effusion, or pneumothorax seen. The cardiac silhouette size is within normal limits. The osseous structures are intact. IMPRESSION: No acute cardiopulmonary process. [facility], , 09/02/2024 4:02 PM
--- NOTE | 2024-09-03 01:16 | PN ---
PROGRESS NOTE DATE OF SERVICE: 09/02/2024 CHIEF COMPLAINT: Epigastric pain. HISTORY OF PRESENT ILLNESS: This gentleman is doing fairly well. His ultrasound suggests gallbladder disease, and his HIDA scan is abnormal. Upper GI endoscopy failed to demonstrate an ulcer. IMPRESSION: Cholecystitis and cholelithiasis. PLAN: Awaiting for recommendations from Surgery. MMODL / IJN: [id number] /
[2024-09-03 09:29] LABS: Basophils # (A) 0.05 X 10*3/uL (0.00-0.10); Basophils % (A) 0.5 %; Eosinophils # (A) 0.57 X 10*3/uL (0.04-0.35); Eosinophils % (A) 5.2 %; HGB 12.1 g/dL (13.0-17.0); Lymphocytes # (A) 2.73 X 10*3/uL (0.90-5.00); Lymphocytes % (A) 25.1 %; MCH 28.4 pg (27.0-32.0); MCHC 33.6 g/dL (32.0-37.0); MCV 84.5 FL (80.0-97.0); Mean Platelet Volume 9.8 FL (9.5-12.2); Monocytes # (A) 0.81 X 10*3/uL (0.20-1.00); Monocytes % (A) 7.4 %; NRBC Per 100 WBC 0 X 10*3/uL (0.00-0.01); Neutrophils # (A) 6.69 X 10*3/uL (1.80-7.70); Neutrophils % (A) 61.5 %; Platelet Count 343 X 10*3/uL (140-440); RBC 4.26 X 10*6/uL (4.40-5.60); RDW 12.9 % (11.5-14.5); WBC 10.88 X 10*3/uL (4.50-10.00)
[2024-09-03 09:54] LABS: ALT 13 U/L (10-49); AST 18 U/L (14-35); Albumin 3.4 g/dL (3.8-4.9); Albumin/Globulin Ratio 1.42 Ratio (1.60-3.17); Alkaline Phosphatase 57 U/L (41-126); BUN/Creat Ratio <5.00 Ratio (12.00-20.00); Bilirubin, Conjugated <0.20 mg/dL (0.20-0.40); Bilirubin,Unconjugated >0.20 mg/dL (0.20-1.00); Blood Urea Nitrogen <3.5 mg/dL (9.0-27.0); Calcium 8.4 mg/dL (8.7-10.3); Carbon Dioxide 23.3 mmol/L (21.6-31.8); Chloride 110 mmol/L (96-109); Globulin 2.4 g/dL (1.6-3.3); Glucose 85 mg/dL (70-110); Potassium 3.8 mmol/L (3.5-5.5); Sodium 141 mmol/L (135-145); Total Bilirubin 0.4 mg/dL (0.3-1.2); Total Protein 5.8 g/dL (6.2-8.2)
[2024-09-03] MEDS: LACTATED RINGERS 1,000 ML IV ONE ×2 (12:35→19:13)
[2024-09-03] MEDS: DEXAMETHASONE SOD PHOSPHATE 4 MG/ML 1 ML VIAL IVP STA (12:51)
[2024-09-03] MEDS: INDOCYANINE GREEN 25 MG VIAL IV STA (13:47)
[2024-09-03] MEDS ORDERED: LIDOCAINE 1% INJ 10MG/ML (20 ML MDV) ONE (18:03)
[2024-09-03] MEDS ORDERED: PROPOFOL 10 MG/ML 20 ML VIAL IV ONE (18:03)
[2024-09-03] MEDS ORDERED: NEOSTIGMINE 1 MG/ML 10 ML VIAL ONE (18:03)
[2024-09-03] MEDS ORDERED: fentaNYL (PF) 50 MCG/ML 2 ML AMP ONE (18:03)
[2024-09-03] MEDS ORDERED: HYDROmorphone (PF) 1 MG/ML ONE (18:03)
[2024-09-03] MEDS ORDERED: SUCCINYLCHOLINE CHLORIDE 200 MG/10 ML VIAL IV ONE (18:03)
[2024-09-03] MEDS ORDERED: KETOROLAC 15 MG/ML 1 ML VIAL ONE (18:03)
[2024-09-03] MEDS ORDERED: ePHEDrine 50 MG/ML 1 ML VIAL ONE (18:03)
[2024-09-03] MEDS ORDERED: ROCURONIUM 10 MG/ML (5 ML VIAL) IV ONE (18:03)
[2024-09-03] MEDS ORDERED: GLYCOPYRROLATE 0.2 MG/ML 2 ML VIAL ONE (18:03)
[2024-09-03] MEDS ORDERED: MIDAZOLAM 2 MG/2 ML VIAL ONE (18:03)
[2024-09-03] MEDS: BUPIVACAINE (PF) 0.25% 30 ML VIAL SQ ONE ×3 (18:23→18:24)
[2024-09-03] MEDS: HYDROmorphone 0.5 MG/0.5 ML SYRINGE IVP PRN (20:14)
--- NOTE | 2024-09-03 21:58 | PN ---
PROGRESS NOTE DATE OF SERVICE: 09/03/2024 CHIEF COMPLAINT: Abdominal pain. HISTORY OF PRESENT ILLNESS: This gentleman is going today for his cholecystectomy. PHYSICAL EXAMINATION: CHEST: Clear. CARDIAC: Normal. ABDOMEN: Soft, nontender. IMPRESSION: Cholecystitis. PLAN: Surgery today. MMODL / IJN: [id number] /
[2024-09-04] MEDS: KETOROLAC 15 MG/ML 1 ML VIAL IVP STA (03:52)
[2024-09-04] MEDS: HYDROcodone/APAP 5-325MG 1 EACH TAB PO PRN (07:13)
--- NOTE | 2024-09-04 07:18 | P.OP ---
Date of Procedure: 09/03/24 Preoperative Diagnosis: Acute cholecystitis Postoperative Diagnosis: Acute cholecystitis Procedure(s) Performed: Robotic cholecystectomy Anesthesia: BRIAN Surgeon: Julito Varghese Pathology: other (Gallbladder and contents) Condition: stable Disposition: floor Indications for Procedure: 43-year-old male presented to the emergency department with severe epigastric and right upper quadrant pain. Workup has been ongoing for both biliary and gastric etiology. On recent HIDA scan, cystic duct obstruction is noted concerning for cholecystitis. Plan is for robotic cholecystectomy. Risks, benefits and alternatives were provided to the patient. All questions answered. Operative Findings: Purulent cholecystitis Description of Procedure: Patient was brought to the operating suite and placed in supine position on the operating table. Sedation was provided by anesthesia and the patient underwent endotracheal intubation. The patient was then prepped and draped in regular sterile fashion. An infraumbilical incision was made and dissection was carried to the fascia. The fascia was incised and an 8 mm trocar was placed. Pneumoperitoneum was achieved. The patient was then placed in appropriate position. 2 additional 8 mm trocars were placed in the right upper quadrant and 1 in the left upper quadrant. Robot was then docked. The gallbladder was then grasped and retracted superiorly and laterally. The gallbladder appeared distended and thickened with cholelithiasis. On grasping the gallbladder, gallbladder did tear with output of purulent material. Dissection was carried along the infundibulum towards the cystic duct and the cystic duct was skeletonized. The cystic artery was similarly skeletonized and critical view was obtained. ICG was used to confirm anatomy. 2 clips were placed proximally on the cystic duct and 1 was placed distally and the cystic duct was ligated. Similarly, 2 clips were placed proximally on the cystic artery and 1 was placed distally and the cystic artery was ligated. Cautery was then used to dissect the gallbladder off of the gallbladder fossa. The gallbladder was then placed in an Endo Catch bag and removed from the abdomen from the infraumbilical incision site. Copious amounts of irrigation was used to suction the purulent material. Hemostasis was noted to be maintained. No bile leakage was noted. The infraumbilical fascial incision was closed under direct visualization using an 0 Vicryl suture and Yousif-Lucina device. Pneumoperitoneum was released. All ports removed from the abdomen. All port sites were closed with 4-0 Vicryl subcuticular suture. Sterile dressing was applied. The patient was taken to postanesthesia care unit in stable condition. Sponge and instrument count correct x 2.
[2024-09-04 07:33] LABS: Basophils % (A) 0 %; Eosinophils # (A) 0.1 k/uL (0-0.7); Eosinophils % (A) 1 %; HCT 35.6 % (39.0-53.0); HGB 12.2 gm/dL (13.0-17.5); Lymphocytes # (A) 1.6 k/uL (1.0-4.8); Lymphocytes % (A) 14 %; MCH 28.6 pg (25.0-35.0); MCHC 34.2 g/dL (31.0-37.0); MCV 83.8 fL (80.0-100.0); Mean Platelet Volume 7.5; Monocytes # (A) 0.6 k/uL (0-1.0); Monocytes % (A) 5 %; Neutrophils # (A) 9.5 k/uL (1.3-7.7); Neutrophils % (A) 79 %; Platelet Count 300 k/uL (150-450); RBC 4.26 m/uL (4.30-5.90); RDW 12.8 % (11.5-15.5)
[2024-09-04 07:53] LABS: ALT 33 U/L (4-49); AST 66 U/L (17-59); African American GFR (CKD) >90 (>60 ml/min/1.73 sqM); Albumin 3.3 g/dL (3.5-5.0); Albumin/Globulin Ratio 1.2; Alkaline Phosphatase 55 U/L (38-126); Anion Gap 7 mmol/L; Blood Urea Nitrogen 7 mg/dL (9-20); Calcium 8.7 mg/dL (8.4-10.2); Carbon Dioxide 24 mmol/L (22-30); Chloride 103 mmol/L (98-107); Globulin 2.7 g/dL; Glucose 110 mg/dL (74-99); Non-African American GFR(CKD) >90 (>60 ml/min/1.73 sqM); Potassium 3.8 mmol/L (3.5-5.1); Sodium 134 mmol/L (137-145); Total Bilirubin 0.4 mg/dL (0.2-1.3)
[2024-09-04] MEDS: HEPARIN SODIUM,PORCINE 5,000 UNIT/ML 1 ML VIAL SQ SCH (09:02)
--- NOTE | 2024-09-04 12:54 | P.PN ---
Subjective Progress Note Date: 09/04/24 SURGICAL PROGRESS NOTE CHIEF COMPLAINT: Abdominal pain HISTORY OF PRESENT ILLNESS: Patient postop day #1 status post Robotic cholecystectomy for acute cholecystitis. Patient is status post EGD on 09/03/19 with results reporting duodenitis hiatal hernia. The duodenum had white patches and inflammatory changes. Biopsies were completed. Afebrile. WBC did go up from 10.8-12 Hgb 12.2 PHYSICAL EXAM: VITAL SIGNS: Reviewed. GENERAL: Well-developed in no acute distress. ABDOMEN: Soft. Nondistended. NEUROLOGIC: Alert and oriented. Cranial nerves II through XII grossly intact. ASSESSMENT: 1. Epigastric abdominal pain 2. Acute cholecystitis. Patient had pus in the gallbladder. Status post robotic cholecystectomy. PLAN: -Continue to monitor -Continue IV antibiotics -Advance diet to low fat -Repeat labs in a.m. -Encourage patient to ambulate -Follow-up on biopsy results from EGD -Continue pain management -Discontinue IV fluids -DVT prophylaxis subcu heparin GI prophylaxis Protonix Physician Director Of Digital Technology note has been reviewed by physician. Signing provider agrees with the documented findings, assessment, and plan of care. Attestation Patient seen and examined at bedside. Case discussed in depth with patient. He is postoperative day #1, robotic cholecystectomy. Afebrile. He was found to have a purulent cholecystitis. Recommending continued admission with IV antibiotics to reduce risk of intra-abdominal abscess formation. Patient will require discharge on oral antibiotics. Patient can have advance to low-fat diet. Julito Varghese, DO Objective - Vital Signs Vital signs: Vital Signs Temp 98.2 F 09/04/24 07:37 Pulse 74 09/04/24 07:37 Resp 18 09/04/24 07:37 BP 125/74 09/04/24 07:37 Pulse Ox 96 09/04/24 07:37 FiO2 Intake & Output 09/03/24 09/04/24 09/04/24 18:59 06:59 18:59 Intake Total 1100 500 Output Total 5 Balance 1100 495 Intake: IV 1100 500 Output: Estimated Blood Loss 5 Other: Voiding Method Toilet Toilet Toilet # Voids 1 1 - Labs CBC & Chem 7: 09/04/24 07:24 09/04/24 07:24 Labs: Abnormal Lab Results - Last 24 Hours (Table) 09/04/24 09/04/24 Range/Units 07:24 07:24 WBC 12.0 H (3.8-10.6) k/uL RBC 4.26 L (4.30-5.90) m/uL Hgb 12.2 L (13.0-17.5) gm/dL Hct 35.6 L (39.0-53.0) % Neutrophils # 9.5 H (1.3-7.7) k/uL Sodium 134 L (137-145) mmol/L BUN 7 L (9-20) mg/dL Creatinine 0.64 L (0.66-1.25) mg/dL Glucose 110 H (74-99) mg/dL AST 66 H (17-59) U/L Total Protein 6.0 L (6.3-8.2) g/dL Albumin 3.3 L (3.5-5.0) g/dL
[2024-09-04] MEDS: PANTOPRAZOLE 40 MG TABLET PO SCH (15:02)
--- NOTE | 2024-09-04 23:47 | PN ---
PROGRESS NOTE CHIEF COMPLAINT: Status post cholecystectomy. HISTORY OF PRESENT ILLNESS: This gentleman is doing fairly well, but he has had no fever or chills. PHYSICAL EXAMINATION: CHEST: Clear. CARDIAC: Normal. ABDOMEN: Soft and nontender. IMPRESSION: Status post cholecystectomy. PLAN: Continue with IV fluids and antibiotics. MMODL / IJN: [id number] /
[2024-09-05 06:18] LABS: Basophils % (A) 0 %; Eosinophils # (A) 0.4 k/uL (0-0.7); Eosinophils % (A) 4 %; HCT 35.1 % (39.0-53.0); HGB 11.9 gm/dL (13.0-17.5); Lymphocytes # (A) 3.1 k/uL (1.0-4.8); Lymphocytes % (A) 32 %; MCH 28.8 pg (25.0-35.0); MCV 84.8 fL (80.0-100.0); Mean Platelet Volume 7.1; Monocytes # (A) 0.6 k/uL (0-1.0); Monocytes % (A) 6 %; Neutrophils # (A) 5.5 k/uL (1.3-7.7); Neutrophils % (A) 57 %; Platelet Count 312 k/uL (150-450); RBC 4.13 m/uL (4.30-5.90); RDW 12.9 % (11.5-15.5); WBC 9.8 k/uL (3.8-10.6)
[2024-09-05 06:34] LABS: ALT 33 U/L (4-49); AST 49 U/L (17-59); African American GFR (CKD) >90 (>60 ml/min/1.73 sqM); Albumin/Globulin Ratio 1.2; Alkaline Phosphatase 50 U/L (38-126); Anion Gap 6 mmol/L; Blood Urea Nitrogen 7 mg/dL (9-20); Calcium 8.6 mg/dL (8.4-10.2); Carbon Dioxide 27 mmol/L (22-30); Chloride 105 mmol/L (98-107); Globulin 2.5 g/dL; Glucose 84 mg/dL (74-99); Non-African American GFR(CKD) >90 (>60 ml/min/1.73 sqM); Potassium 3.8 mmol/L (3.5-5.1); Sodium 138 mmol/L (137-145); Total Bilirubin 0.3 mg/dL (0.2-1.3); Total Protein 5.5 g/dL (6.3-8.2)
[2024-09-05 09:59] VITALS: BP 126/80; PULSE 69; RESP 17; TEMP 98.1
--- NOTE | 2024-09-05 10:33 | P.DS ---
Providers Date of admission: 08/31/24 13:35 Expected date of discharge: 09/05/24 Attending physician: Mauro Jay DO Consults: 08/31/24 13:40 Consult Physician Urgent Consulting Provider: Michael Torres Consult Reason/Comments: medical mgmt Do you want consulting provider notified?: Yes Primary care physician: Michael Torres Hospital Course: Discharge diagnosis 1. Epigastric abdominal pain status post EGD reporting duodenitis and hiatal hernia 2. Acute purulent cholecystitis. Status post robotic cholecystectomy. Hospital course This is a 43-year-old male who presented to the hospital with complaints of abdominal pain. He did have some vomiting and diarrhea for a few days. CAT scan had reported concerns for cholecystitis. Ultrasound reported gallbladder wall thickening with sludge. He is status post robotic cholecystectomy for an acute purulent cholecystitis. He also had EGD completed during this admission reporting duodenitis and hiatal hernia. Pathology report still pending. Patient's pain is controlled. He is tolerating diet. He is afebrile. He has been up and ambulating. White count has normalized. He is stable for discharge . Patient will be discharged with antibiotics. Please refer to chart for any further details. Physician Financial Auditor note has been reviewed by physician. Signing provider agrees with the documented findings, assessment, and plan of care. Attestation Patient seen and examined at bedside. Status post robotic cholecystectomy for purulent cholecystitis. Maintained postoperatively on IV antibiotics. Leukocytosis has resolved today with plan for discharge home on oral antibiotics. Patient is understanding of risk of intra-abdominal abscess secondary to purulent cholecystitis. Wound care and activity instructions provided. Patient to follow-up as outpatient. Julito Varghese DO Patient Condition at Discharge: Stable Plan - Discharge Summary Discharge Rx Participant: No New Discharge Prescriptions: New Ciprofloxacin HCl [Cipro] 500 mg PO Q12HR 7 Days #14 tab Ibuprofen [Motrin] 600 mg PO Q8HR PRN #30 tab PRN Reason: Pain metroNIDAZOLE [Flagyl] 500 mg PO TID 7 Days #21 tab Continue FLUoxetine HCL 40 mg PO DAILY Discharge Medication List FLUoxetine HCL 40 mg PO DAILY 08/31/24 [History] Ciprofloxacin HCl [Cipro] 500 mg PO Q12HR 7 Days #14 tab 09/05/24 [Rx] Ibuprofen [Motrin] 600 mg PO Q8HR PRN #30 tab 09/05/24 [Rx] metroNIDAZOLE [Flagyl] 500 mg PO TID 7 Days #21 tab 09/05/24 [Rx] Follow up Appointment(s)/Referral(s): Michael Torres MD [Primary Care Provider] - 09/10/24 1:40 pm Julito Varghese DO [Doctor of Osteopathic Medicine] - 09/17/24 9:30 am Activity/Diet/Wound Care/Special Instructions: No driving while taking [place] No lifting over 10 pounds You may shower. No soaking or tub baths for 2 weeks Very light activity until you are reevaluated at your follow up appointment with your surgeon Discharge Disposition: HOME SELF-CARE
--- NOTE | 2024-09-06 01:31 | PN ---
PROGRESS NOTE DATE OF SERVICE: 09/05/2024 CHIEF COMPLAINT: Status post appendectomy. HISTORY OF PRESENT ILLNESS: This gentleman is doing well and he may be going home today. PHYSICAL EXAMINATION: GENERAL: He is afebrile. CHEST: Clear. CARDIAC: Normal. ABDOMEN: Soft, nontender. IMPRESSION: Acute cholecystitis, status post cholecystectomy. PLAN: Possibly home today. MMODL / IJN: [id number] /
--- NOTE | 2024-09-07 21:54 | CDI ---
Documentation Clarification Form Date: 09/07/2024 09:46:59 PM From: Evangelina Mckenna Phone: Admit Date: 08/31/2024 01:35:00 PM Patient Name: Rafal Davila Visit Number: [id number] Discharge Date: 09/05/2024 10:33:00 AM ATTENTION: The Clinical Documentation Specialists (CDI) and [facility] Coding Staff appreciate your assistance in clarifying documentation. Please respond to the clarification below the line at the bottom and electronically sign. The CDI & [facility] Coding staff will review the response and follow-up if needed. Please note: Queries are made part of the Legal Health Record. If you have any questions, please contact the author of this message via ITS. Doctor/Provider: Julito Varghese The final diagnosis of the 09/02 pathology report states reactiveerosiveduodenitiswithBrunner'sgland hyperplasia and erosiveactivereflux esophagitis. Coding guidelines do not allow coding professionals to code based on pathology results; therefore, clarification is requested. History/risk factors: Epigastric pain, duodenitis, hiatal hernia Clinical Indicators: 43-year-old male presented to the emergency department with severeepigastric pain. Workup constitutes both biliary and gastric workup. Plan is forEGD currently. Risks, benefits and alternatives were provided to the patient. Treatment: EGDwithbiopsies Please clarify if you agree with the pathology report diagnosis of reactiveerosiveduodenitiswithBrunner'sgland hyperplasia and erosiveactivereflux esophagitis: [ ] Yes [ ] No [ X ] Other (please specify) I am not a pathologist, defer to pathology on reported diagnosis. [ ] Unable to determine (Template Last Revised: August 2020) MTDD
--- NOTE | 2024-09-07 22:03 | CDI ---
Documentation Clarification Form Date: 09/07/2024 09:56:32 PM From: Evangelina Mckenna Phone: Admit Date: 08/31/2024 01:35:00 PM Patient Name: Rafal Davila Visit Number: [id number] Discharge Date: 09/05/2024 10:33:00 AM ATTENTION: The Clinical Documentation Specialists (CDI) and [facility] Coding Staff appreciate your assistance in clarifying documentation. Please respond to the clarification below the line at the bottom and electronically sign. The CDI & [facility] Coding staff will review the response and follow-up if needed. Please note: Queries are made part of the Legal Health Record. If you have any questions, please contact the author of this message via ITS. Doctor/Provider: Julito Varghese The final diagnosis of the 09/03 pathology report states chronic cholecystitis with cholelithiasis. Coding guidelines do not allow coding professionals to code based on pathology results; therefore, clarification is requested. History/risk factors: 43yo F, Epigastric pain, duodenitis, hiatal hernia Clinical Indicators: consists of an 8.5 x 2.5 x 2.5 cm pink/ward gallbladder that has multiple gaping defects along the hepatic attachment. There is a 2.5 x 1.8 x 1.3 cm ovoid yellow/browncalculusimpactedwithin the fundus. The mucosa is dusky, ward/red and trabeculated. The wall is fibrous and up to 0. 8 cm thick. Thecysticduct is patent. Treatment: Roboticcholecystectomy Please clarify if you agree with the pathology report diagnosis of chronic cholecystitis with cholelithiasis: [ ] Chronic cholecystitis with cholelithiasis [ ] Acute cholecystitis [ ] Acute cholecystitis on chronic cholecystitis with cholelithiasis [ X ] Other (please specify) I am not a pathologist, would defer to pathology for their report [ ] Unable to determine (Template Last Revised: August 2020) MTDD
== END 2024-09-05 10:33 | disposition home or self-care (01) | DRG 263 ==
LOC: EC 10:22 → INTOOBSV 13:34 → 4SSUR 13:34 → OBSVTOIN 13:35 → 4SSUR 14:05
PROVIDERS: ADMIT Surgery; ATTEND Surgery
PROC: 0DB98ZX Excision of Duodenum, Via Natural or Artificial Opening Endoscopic, Diagnostic (ICD-10-PCS; 2024-09-02)
PROC: 0DB78ZX Excision of Stomach, Pylorus, Via Natural or Artificial Opening Endoscopic, Diagnostic (ICD-10-PCS; 2024-09-02)
PROC: 0DB48ZX Excision of Esophagogastric Junction, Via Natural or Artificial Opening Endoscopic, Diagnostic (ICD-10-PCS; 2024-09-02)
PROC: 8E0W4CZ Robotic Assisted Procedure of Trunk Region, Percutaneous Endoscopic Approach (ICD-10-PCS; 2024-09-03)
PROC: 0FT44ZZ Resection of Gallbladder, Percutaneous Endoscopic Approach (ICD-10-PCS; principal; 2024-09-03 07:30)
DX: K80.00 Calculus of gallbladder with acute cholecystitis without obstruction (principal); K29.80 Duodenitis without bleeding; K44.9 Diaphragmatic hernia without obstruction or gangrene; K31.89 Other diseases of stomach and duodenum; K21.00 Gastro-esophageal reflux disease with esophagitis, without bleeding; Z79.899 Other long term (current) drug therapy; Z87.891 Personal history of nicotine dependence
CPT/HCPCS: 36415; 43239; 71046; 74177; 76705; 78227; 80048; 80053; 80076; 81003; 82150; 83605; 83690; 85025; 88304; 88305; 88312; 96361; 96365; 96367; 96375; 96376; 99285

== ENCOUNTER 2024-09-07 12:28 | Observation (INO) | payer OTHER ==
--- NOTE | 2024-09-07 13:15 | ED ---
General Adult HPI - General Source: patient, EMS, RN notes reviewed, old records reviewed Mode of arrival: EMS Limitations: no limitations <Henok Arias - Last Filed: 09/07/24 16:38> <Roney Howard - Last Filed: 09/07/24 21:55> - General Chief complaint: Psychiatric Symptoms Stated complaint: suicide attempt Time Seen by Provider: 09/07/24 12:44 - History of Present Illness Initial comments: This is a 44-year-old male who presents to the emergency department after having taken 12 [place] approximate hour prior to arrival. Patient states he is suicidal but refuses to go into any detail. Patient is not cooperative. Patient states he has no physical complaints. (Henok Arias) - Related Data Home Medications Medication Instructions Recorded Confirmed FLUoxetine HCL 40 mg PO DAILY 08/31/24 09/07/24 Previous Rx's Medication Instructions Recorded Ciprofloxacin HCl [Cipro] 500 mg PO Q12HR 7 Days #14 tab 09/05/24 HYDROcodone/APAP 5-325MG [[place] 1 tab PO Q6HR PRN 3 Days #12 tab 09/05/24 5-325] Ibuprofen [Motrin] 600 mg PO Q8HR PRN #30 tab 09/05/24 metroNIDAZOLE [Flagyl] 500 mg PO TID 7 Days #21 tab 09/05/24 Allergies Allergy/AdvReac Type Severity Reaction Status Date / Time amoxicillin Allergy Unknown Verified 09/07/24 14:28 egg AdvReac Severe Nausea & Verified 09/07/24 14:28 Vomiting onion AdvReac Severe Nausea & Verified 09/07/24 14:28 Vomiting Review of Systems ROS Other: All systems not noted in ROS Statement are negative. <Henok Arias - Last Filed: 09/07/24 16:38> ROS Other: All systems not noted in ROS Statement are negative. <Roney Howard - Last Filed: 09/07/24 21:55> ROS Statement: Those systems with pertinent positive or pertinent negative responses have been documented in the HPI. Past Medical History Past Medical History: GERD/Reflux History of Any Multi-Drug Resistant Organisms: None Reported Past Surgical History: Cholecystectomy, Tonsillectomy Additional Past Surgical History / Comment(s): fatty tumor removal Past Anesthesia/Blood Transfusion Reactions: No Reported Reaction Past Psychological History: Anxiety, Depression Smoking Status: Former smoker Past Alcohol Use History: Occasional Past Drug Use History: Marijuana <Henok Arias - Last Filed: 09/07/24 16:38> General Exam Limitations: no limitations <Henok Arias - Last Filed: 09/07/24 16:38> - General Exam Comments Initial Comments: GENERAL: Patient is well-developed and well-nourished. Patient is nontoxic and well- hydrated and is in mild distress. ENT: Neck is soft and supple. No significant lymphadenopathy is noted. Oropharynx is clear. Moist mucous membranes. Neck has full range of motion without eliciting any pain. EYES: The sclera were anicteric and conjunctiva were pink and moist. Extraocular movements were intact and pupils were equal round and reactive to light. Eyelids were unremarkable. PULMONARY: Unlabored respirations. Good breath sounds bilaterally. No audible rales rhonchi or wheezing was noted. CARDIOVASCULAR: There is a regular rate and rhythm without any murmurs gallops or rubs. ABDOMEN: Soft and nontender with normal bowel sounds. SKIN: Skin is clear with no lesions or rashes and otherwise unremarkable. NEUROLOGIC: Patient is alert and oriented x3. Cranial nerves II through XII are grossly intact. Motor and sensory are also intact. Normal speech, volume and content. Symmetrical smile. MUSCULOSKELETAL: Normal extremities with adequate strength and full range of motion. LYMPHATICS: No significant lymphadenopathy is noted PSYCHIATRIC: Patient states he is depressed and took 12 [place] today because he was upset and suicidal. He did call his to let her know that he took them (Henok Arias) Course Vital Signs 09/07/24 09/07/24 12:43 16:00 Temperature 98.6 F Pulse Rate 72 106 H Respiratory 18 20 Rate Blood Pressure 123/79 139/93 O2 Sat by Pulse 98 97 Oximetry Medical Decision Making <Henok Arias - Last Filed: 09/07/24 16:38> <Roney Howard - Last Filed: 09/07/24 21:55> - Medical Decision Making Was pt. sent in by a medical professional or institution (, PA, [employer], urgent care, hospital, or [place] health [place] facility...) When possible be specific @ -No Did you speak to anyone other than the patient for history (EMS, parent, family, police, friend...)? What history was obtained from this source @ -No Did you review nursing and triage notes (agree or disagree)? Why? @ -I reviewed and agree with nursing and triage notes Were old charts reviewed (outside hosp., previous admission, EMS record, old EKG, old radiological studies, urgent care reports/EKG's, [place] health care facility records)? Report findings @ -No old charts were reviewed Differential Diagnosis? @ -Differential Mental Health Depression, anxiety, bipolar, psychosis, schizophrenia, borderline personality, situational depression, adjustment disorder, behavioral disorder, brain tumor, malingering, substance abuse, encephalopathy, medication reaction, dementia, hypothyroidism, degenerative neurologic disorder, lupus.... This is not meant to be all-inclusive list EKG interpreted by me (3pts min.). @ -As above X-rays interpreted by me (1pt min.). @ -None done CT interpreted by me (1pt min.). @ -None done U/S interpreted by me (1pt. min.). @ -None done What testing was considered but not performed or refused? (CT, X-rays, U/S, l abs)? Why? @ -None What meds were considered but not given or refused? Why? @ -None Did you discuss the management of the patient with other professionals (professionals i.e. , PA, [employer], lab, RT, psych nurse, hospice social worker, boats renter, teacher, command and control officer, nurse case manager)? Give summary @ -EPS came down evaluated the patient and spoke with psych and determined the patient need to be admitted Was smoking cessation discussed for >3mins.? @ -No Was critical care preformed (if so, how long)? @ -No Were there social determinants of health that impacted care today? How? (Homelessness, low income, unemployed, alcoholism, drug addiction, transportation, low edu. Level, literacy, decrease access to med. care, residential, rehab)? @ -No Was there de-escalation of care discussed even if they declined (Discuss DNR or withdrawal of care, Hospice)? DNR status @ -No What co-morbidities impacted this encounter? (DM, HTN, Smoking, COPD, CAD, Cancer, CVA, ARF, Chemo, Hep., AIDS, mental health diagnosis, sleep apnea, morbid obesity)? @ -None Was patient admitted / discharged? Hospital course, mention meds given and route, prescriptions, significant lab abnormalities, going to OR and other pertinent info. @ -Patient continued to say that he was depressed and suicidal while in the emergency department patient will be admitted. Undiagnosed new problem with uncertain prognosis? @ -No Drug Therapy requiring intensive monitoring for toxicity (Heparin, Nitro, Insulin, Cardizem)? @ -No Were any procedures done? @ -No Diagnosis/symptom? @ -Suicide attempt Acute, or Chronic, or Acute on Chronic? @ -Acute Uncomplicated (without systemic symptoms) or Complicated (systemic symptoms)? @ -Complicated Side effects of treatment? @ -No Exacerbation, Progression, or Severe Exacerbation? @ -No Poses a threat to life or bodily function? How? (Chest pain, [place], [place], pneumonia, PE, COPD, DKA, ARF, appy, cholecystitis, CVA, Diverticulitis, Homicidal, Suicidal, threat to staff... and all critical care pts) @ -Yes this could lead to Diagnosis/symptom? @ -Depression Acute, or Chronic, or Acute on Chronic? @ -Acute on chronic Uncomplicated (without systemic symptoms) or Complicated (systemic symptoms)? @ -Complicated Side effects of treatment? @ -None Exacerbation, Progression, or Severe Exacerbation] @ -No Poses a threat to life or bodily function? @ -No (Henok Arias) Patient was boarding in the ER pending psychiatric admit. I was notified by nurse that patient will require hospital admission given that he tested positive for COVID-19. We do not accept COVID-positive patients into her inpatient psych unit. Patient will be admitted medically with psychiatric consult. Case discussed with hospitalist for admission. (Roney Howard) - Lab Data Lab Results 09/07/24 09/07/24 09/07/24 Range/Units 13:27 16:43 17:05 Salicylates <1.0 mg/dL Urine Opiates Screen Detected H (NotDetected) Ur Oxycodone Screen Detected H (NotDetected) Urine Methadone Screen Not Detected (NotDetected) Acetaminophen 27.6 11.3 ug/mL Ur Barbiturates Screen Not Detected (NotDetected) U Tricyclic Antidepress Not Detected (NotDetected) Ur Phencyclidine Scrn Detected H (NotDetected) Ur Amphetamines Screen Not Detected (NotDetected) U Methamphetamines Scrn Not Detected (NotDetected) U Benzodiazepines Scrn Detected H (NotDetected) Urine Cocaine Screen Not Detected (NotDetected) U Marijuana (THC) Screen Detected H (NotDetected) SARS-CoV-2 (PCR) (Not Detectd) 09/07/24 Range/Units 20:16 Salicylates mg/dL Urine Opiates Screen (NotDetected) Ur Oxycodone Screen (NotDetected) Urine Methadone Screen (NotDetected) Acetaminophen ug/mL Ur Barbiturates Screen (NotDetected) U Tricyclic Antidepress (NotDetected) Ur Phencyclidine Scrn (NotDetected) Ur Amphetamines Screen (NotDetected) U Methamphetamines Scrn (NotDetected) U Benzodiazepines Scrn (NotDetected) Urine Cocaine Screen (NotDetected) U Marijuana (THC) Screen (NotDetected) SARS-CoV-2 (PCR) Detected A (Not Detectd) Disposition Time of Disposition: 16:40 <Henok Arias - Last Filed: 09/07/24 16:38> Decision Time: 21:55 <Roney Howard - Last Filed: 09/07/24 21:55> Clinical Impression: Depression, Attempted suicide, Coronavirus infection Disposition: ADMITTED IP TO THIS [facility] Referrals: Michael Torres MD [Primary Care Provider] - 1-2 days
[2024-09-07 13:47] LABS: Acetaminophen 27.6 ug/mL; Salicylate <1.0 mg/dL
[2024-09-07 17:12] LABS: Amphetamine Screen,Urine Not Detected (NotDetected); Barbiturate Screen,Urine Not Detected (NotDetected); Benzodiazepines Screen,Urine Detected (NotDetected); Cocaine Screen,Urine Not Detected (NotDetected); Methadone Screen, Urine Not Detected (NotDetected); Opiate Screen,Urine Detected (NotDetected); Oxycodone Screen, Urine Detected (NotDetected); Phencyclidine Screen,Urine Detected (NotDetected); Tricyclic Antidepressant,Urine Not Detected (NotDetected); Urn Cannabinoid Scrn Detected (NotDetected)
[2024-09-07] MEDS ORDERED: HYDROcodone/APAP 5-325MG 1 EACH TAB PO PRN (21:53)
[2024-09-07] MEDS ORDERED: NALOXONE 0.4 MG/ML 1 ML VIAL IV PRN (21:55)
[2024-09-07] MEDS: CIPROFLOXACIN HCL 500 MG TAB PO SCH (22:09)
[2024-09-07] MEDS: metroNIDAZOLE 500 MG TAB PO SCH (22:09)
[2024-09-07] MEDS: FLUoxetine HCL 20 MG CAP PO SCH (22:10)
--- NOTE | 2024-09-08 08:28 | P.HPIM ---
History of Present Illness This is a pleasant 44 years old male with past medical history of multiple medical problems as below. Including history of GERD and cholecystitis status post laparoscopic cholecystectomy last week and anxiety and depression. Also has history of substance abuse with marijuana. Presents because of overdose with [place]. Patient states that last week he had laparoscopic cholecystectomy. Yesterday he has a quarrel with his , so he took 10 pills of [place]. Patient this morning tells me he is not depressed is not suicidal. He is complaining from dry coughing. No chest pain or dyspnea. The patient was found to be COVID positive so he was admitted to the medical floor with psychiatric care. Patient denies chest pain or dyspnea. No abdominal pain or vomiting or diarrhea. No urinary complaint. No headache dizziness weakness or numbness. Patient is currently afebrile. Vital stable. COVID test is positive Urine drug screen was positive for opiates, oxycodone, phencyclidine, benzodiazepine and marijuana. When asked the patient about this medication he could not recognize them Review of Systems Review of systems CONSTITUTIONAL: No fever, no malaise, no fatigue. HEENT: No recent visual problems or hearing problems. Denied any sore throat. CARDIOVASCULAR: No orthopnea, PND, no palpitations, no syncope. PULMONARY: No shortness of breath, no cough, no hemoptysis. GASTROINTESTINAL: No diarrhea, no nausea, no vomiting, no abdominal pain. Normoactive bowel sounds. NEUROLOGICAL: No headaches, no weakness, no numbness. HEMATOLOGICAL: Denies any bleeding or petechiae. GENITOURINARY: Denies any burning micturition, frequency, or urgency. MUSCULOSKELETAL/RHEUMATOLOGICAL: Denies any joint pain, swelling, or any muscle pain. ENDOCRINE: Denies any polyuria or polydipsia. Past Medical History Past Medical History: GERD/Reflux History of Any Multi-Drug Resistant Organisms: None Reported Past Surgical History: Cholecystectomy, Tonsillectomy Additional Past Surgical History / Comment(s): fatty tumor removal Past Anesthesia/Blood Transfusion Reactions: No Reported Reaction Past Psychological History: Anxiety, Depression Smoking Status: Former smoker Past Alcohol Use History: Occasional Past Drug Use History: Marijuana Medications and Allergies Home Medications Medication Instructions Recorded Confirmed Type FLUoxetine HCL 40 mg PO DAILY 08/31/24 09/07/24 History Ciprofloxacin HCl [Cipro] 500 mg PO Q12HR 7 Days #14 tab 09/05/24 09/07/24 Rx HYDROcodone/APAP 5-325MG [[place] 1 tab PO Q6HR PRN 3 Days #12 tab 09/05/24 09/07/24 Rx 5-325] Ibuprofen [Motrin] 600 mg PO Q8HR PRN #30 tab 09/05/24 09/07/24 Rx metroNIDAZOLE [Flagyl] 500 mg PO TID 7 Days #21 tab 09/05/24 09/07/24 Rx Allergies Allergy/AdvReac Type Severity Reaction Status Date / Time amoxicillin Allergy Unknown Verified 09/07/24 14:28 egg AdvReac Severe Nausea & Verified 09/07/24 14:28 Vomiting onion AdvReac Severe Nausea & Verified 09/07/24 14:28 Vomiting Physical Exam Vitals: Vital Signs Temp Pulse Resp BP Pulse Ox 09/07/24 22:00 97.9 F 76 18 139/90 97 09/07/24 16:00 106 H 20 139/93 97 09/07/24 12:43 98.6 F 72 18 123/79 98 GENERAL: The patient is alert and oriented x3, not in any acute distress. Well developed, well nourished. HEENT: Pupils are round and equally reacting to light. EOMI. No scleral icterus. No conjunctival pallor. Normocephalic, atraumatic. No pharyngeal erythema. No thyromegaly. CARDIOVASCULAR: S1 and S2 present. No murmurs, rubs, or gallops. PULMONARY: Chest is clear to auscultation, no wheezing , no crackles. ABDOMEN: Soft, nontender, nondistended, normoactive bowel sounds. No palpable organomegaly. MUSCULOSKELETAL: No joint swelling or deformity. EXTREMITIES: No cyanosis, clubbing, or pedal edema. NEUROLOGICAL: Gross neurological examination did not reveal any focal deficits. SKIN: No rashes. no petechiae. Results Labs: Abnormal Lab Results - Last 24 Hours (Table) 09/07/24 09/07/24 Range/Units 16:43 20:16 Urine Opiates Screen Detected H (NotDetected) Ur Oxycodone Screen Detected H (NotDetected) Ur Phencyclidine Scrn Detected H (NotDetected) U Benzodiazepines Scrn Detected H (NotDetected) U Marijuana (THC) Screen Detected H (NotDetected) SARS-CoV-2 (PCR) Detected A (Not Detectd) Assessment and Plan Assessment: Drug overdose with [place] suspicious for suicidal attempt Anxiety and depression COVID infection without pneumonia or hypoxia Cholecystitis status post recent laparoscopic cholecystectomy GERD, gastroesophageal reflux disease Substance abuse with marijuana Plan: I talked to the patient medically will be monitored for 24 hours and he agrees. Continue with supportive care Suicidal ideation Mental health team consult Patient cannot leave AMA till he has been cleared by psychiatrist CERT signed and placed in the paper chart Labs and medication were reviewed.. Continue same treatment. Continue with symptomatic treatment. Resume home medication. Monitor labs and vitals. DVT and GI prophylaxis. Further recommendations as per clinical course of the patient DVT prophylaxis: Subcutaneous heparin GI Prophylaxis: Pepcid Dr. Torres his PCP resume the care of the patient tomorrow Prognosis is guarded
--- NOTE | 2024-09-08 17:00 | P.HP ---
Psychiatric H&P - . H&P Date: 09/08/24 History & Physical: Allergies Allergy/AdvReac Type Severity Reaction Status Date / Time amoxicillin Allergy Unknown Verified 09/07/24 14:28 egg AdvReac Severe Nausea & Verified 09/07/24 14:28 Vomiting onion AdvReac Severe Nausea & Verified 09/07/24 14:28 Vomiting Vital Signs Temp 97.9 F 09/07/24 22:00 Pulse 76 09/07/24 22:00 Resp 18 09/07/24 22:00 BP 139/90 09/07/24 22:00 Pulse Ox 97 09/07/24 22:00 FiO2 Intake & Output 09/07/24 09/08/24 09/08/24 18:59 06:59 18:59 Weight 81.647 kg Laboratory Last Values Salicylates <1.0 mg/dL 09/07/24 13:27 Urine Opiates Screen Detected (NotDetected) H 09/07/24 16:43 Ur Oxycodone Screen Detected (NotDetected) H 09/07/24 16:43 Urine Methadone Screen Not Detected (NotDetected) 09/07/24 16:43 Acetaminophen 11.3 ug/mL 09/07/24 17:05 Ur Barbiturates Screen Not Detected (NotDetected) 09/07/24 16:43 U Tricyclic Antidepress Not Detected (NotDetected) 09/07/24 16:43 Ur Phencyclidine Scrn Detected (NotDetected) H 09/07/24 16:43 Ur Amphetamines Screen Not Detected (NotDetected) 09/07/24 16:43 U Methamphetamines Scrn Not Detected (NotDetected) 09/07/24 16:43 U Benzodiazepines Scrn Detected (NotDetected) H 09/07/24 16:43 Urine Cocaine Screen Not Detected (NotDetected) 09/07/24 16:43 U Marijuana (THC) Screen Detected (NotDetected) H 09/07/24 16:43 SARS-CoV-2 (PCR) Detected (Not Detectd) A 09/07/24 20:16 09/08/24 16:45 IDENTIFYING DATA: This patient is a 44-year-old male REASON FOR REFERRAL: Psychiatry was consulted for suicide attempt HISTORY OF PRESENT ILLNESS: The patient presented to the hospital following a suicide attempt via overdosing on 10 tablets of [place]. Patient tested positive for COVID-19 and therefore is on the medical floor Patient states "I do not know why "regarding his reason for suicide attempt. He states that he recently had cholecystectomy and felt somewhat physically unwell being on anesthesia. After returning home, he felt that his was not as caring and as supportive as he hoped for which resulted in an argument on 09/06/2024. Following that, he reports on the morning of 09/07/2024 which was his birthday, patient decided to take [place] while his was away grocery shopping. He says that it was one of the pain medications to which he had access. He feels that the suicide attempt was an attempt to seek for his 's attention. Patient describes the attempt as impulsive and says he called his f riend afterwards informing him of that attempt which resulted in EMS being called to his home. Patient presents with psychological defense mechanisms of minimization and denial currently. He reports feeling embarrassed about his actions and states that he does not feel depressed at all. He states that his mood is "actually been really good ". He reports good sleep, good concentration, and fair energy during the daytime. He reports fluctuating appetite due to his recent surgery. He has been working with a musician and his to get the records transferred from [facility] to [facility] which will be released soon and patient describes looking forward to that. At this time patient denies any suicidal or homicidal ideations, intent or plan. He denies symptoms consistent with mariama. Patient denies any auditory, visual hallucinations and denies any paranoia or delusions. Patients admits to using cannabis daily but otherwise denies all substance use. PAST PSYCHIATRIC HISTORY: Patient endorses a history of being diagnosed with depression. He denies having current outpatient psychiatrist or therapist. He reports his last suicide attempt was in 2010 following a divorce when he overdosed on Xanax and required subsequent psychiatric hospitalization. He denies nonsuicidal self injury behavior. He is on Prozac 40 mg daily currently PAST MEDICAL HISTORY: Past Medical History: GERD/Reflux History of Any Multi-Drug Resistant Organisms: None Reported Past Surgical History: Cholecystectomy, Tonsillectomy Additional Past Surgical History / Comment(s): fatty tumor removal Past Anesthesia/Blood Transfusion Reactions: No Reported Reaction Past Psychological History: Anxiety, Depression Smoking Status: Former smoker Past Alcohol Use History: Occasional Past Drug Use History: Marijuana ALLERGIES: as per EMR. CHEMICAL DEPENDENCY HISTORY: as per HPI. FAMILY PSYCHIATRIC/SUBSTANCE USE HISTORY: Denies any and denies any family history of suicide attempt SOCIAL HISTORY: Patient reports living with and 4 children. He was previously and in 2010. He works at an [email or web address]. 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 MENTAL STATUS EXAM: General Appearance: Patient appears to be stated age is alert, pleasant, and cooperative. Patient appears to have[fair hygiene and grooming wearing hospital gown with good eye contact. Behavior: Patient is calmly lying in bed without any agitated behavior. Speech: Patient's speech is fluent and nonpressured. Mood/Affect: Patient reports their mood is "good", affect is congruent, smiling Suicidality/Homicidality: Patient denies having any suicidal or homicidal ideation intent or plan. Perceptions: Patient denies any visual hallucinations and denies any auditory hallucinations Though content/process: There is no evidence of any delusional thought content and thought process is linear and goal-directed. Minimizing and denying seriousness of suicide attempt Memory and concentration: AOX3, grossly intact for the purposes of this session. Can spell "WORLD" backwards Judgment and insight: poor and impulsive IMPRESSIONS: Adjustment disorder with depressed mood r/o major depressive disorder Cluster B traits Cannabis use disorder PLAN: -At this time patient DOES meet criteria for inpatient psychiatric admission. -Would recommend the following medication changes/additions: Increase Prozac to 60 mg daily for depression -Continue 1:1 sitter for safety -Cannot leave AMA at this time. Patient will need an active petition and certification to be maintained by primary team -community service worker to provide patient with outpatient mental health/psychiatry resources for appropriate follow up upon discharge -When medically stable, patient is eligible for transfer to a psych bed when available. Unable to be transferred currently due to COVID-19. -Will continue to follow along -Please contact with any questions.
[2024-09-08] MEDS: NICOTINE 21MG/24HR PATCH TRANSDERM SCH (23:31)
[2024-09-09] MEDS: IBUPROFEN 600 MG TAB PO PRN (05:53)
[2024-09-09] MEDS: FLUoxetine HCL 20 MG CAP PO SCH (08:38)
[2024-09-09] MEDS ORDERED: NICOTINE 21MG/24HR PATCH TRANSDERM SCH (09:00)
--- NOTE | 2024-09-09 22:00 | PN ---
PROGRESS NOTE CHIEF COMPLAINT: Suicide attempt. HISTORY OF PRESENT ILLNESS: This gentleman is stable. There has been no interval change. PHYSICAL EXAMINATION: VITAL SIGNS: Normal. CHEST: Clear. CARDIAC EXAM: Normal. IMPRESSION: Status post drug ingestion, overdose, and suicide attempt. PLAN: Psychiatric evaluation. MMODL / REJIN: [id number] /
[2024-09-10 07:33] VITALS: RESP 18; TEMP 98.1
[2024-09-10 15:22] VITALS: BP 115/72; PULSE 73
--- NOTE | 2024-09-11 20:42 | DS ---
DISCHARGE SUMMARY CHIEF COMPLAINT: Drug ingestion and overdose. HISTORY OF PRESENT ILLNESS AND PHYSICAL EXAMINATION: Details of this man's history and physical can be found in the initial workup. LABORATORY STUDIES: While he was in the hospital, he had laboratory studies, details of which can be found in the laboratory section of his chart. COURSE IN THE HOSPITAL: After admission, he was placed on bedrest, started on intravenous fluids and had frequent monitoring of his neurologic status and vital signs as well as suicide precautions. He was seen by Psychiatry. They requested that he be kept in the hospital until they cleared him. They did feel that he was safe to go home on the and to be discharged to follow up in the office. FINAL DIAGNOSES: 1. Drug ingestion overdose. 2. Depression. OPERATIONS: None. CONSULTATIONS: Psychiatry. TARYN / ANNE: [id number] /
== END 2024-09-10 15:35 | disposition home or self-care (01) ==
LOC: EC 12:28 → 4SSUR 21:56 → INTOOBSV 21:56
PROVIDERS: ADMIT Family Medicine; ATTEND Family Medicine
DX: T40.2X2A Poisoning by other opioids, intentional self-harm, initial encounter (principal); U07.1 COVID-19; F43.21 Adjustment disorder with depressed mood; F60.89 Other specific personality disorders; K21.9 Gastro-esophageal reflux disease without esophagitis; F41.9 Anxiety disorder, unspecified; F12.10 Cannabis abuse, uncomplicated; Z74.3 Need for continuous supervision; Z79.899 Other long term (current) drug therapy; Z88.0 Allergy status to penicillin; Z91.012 Allergy to eggs; Z91.018 Allergy to other foods; Z87.891 Personal history of nicotine dependence; Z90.49 Acquired absence of other specified parts of digestive tract; Z91.51 Personal history of suicidal behavior
CPT/HCPCS: 82075; 99285; 36415; 80306; 80143; 87635; 80179; G0378 ×2; S4990